=== PATIENT | male | born 1960 | race Two or more races ===

== ENCOUNTER 2020-03-22 15:00 | Outpatient (AMBR) | payer MEDICARE, MEDICAID, SELFPAY ==
--- NOTE | 2020-03-15 14:40 | PT.ODAYNRPT ---
PT Outpatient Daily Note Date of Service: 03/15/20 OP Daily Note Visit Reasons: bilat leg weakness Outpatient Physical Therapy Treatment Date: 03/15/20 Subjective: Pt mention that his legs are the same. Pt ran out of norco for 3 days and he's been having bad thoughts. Pt took a ibuprofen 2 days ago which seems to help his pain and ease his thoughts. Today Pt's been waiting for over 3 hrs for his pain meds and still hasn't received it yet. Pt stated that he's depressed due to not being able to work over 1 year Objective: Please see flow chart for list of ther ex performed Assessment: tolerate exercises with minimal pain Plan: Continue with PT Length of Time (minutes) of Treatment: 30 Minutes Office Procedures PT Procedures PT Date of Service: 03/15/20 Therapeutic Exercise 30 minutes: Yes
--- NOTE | 2020-03-22 16:12 | PTNOTE_ITS ---
PT OP Progress/Discharge Note Date of Service: 03/22/20 Progress Note/DC Note Progress Note/Discharge Note: DC Note Patient Information Visit Reasons: bilat leg weakness Medical Diagnosis: BLE Weakness; Right Medial Meniscus Tear Treatment Dx #1: BLE Weakness Service Continue Service or Discharge: Discharge Discharge Date: 03/22/20 Status Subjective: Pt mention that his legs feels the same and seems to worsen after t herapy. Pt continues to have medial right knee pain (6/10) with activities. Due to Pt's symptoms Pt has limitation with prolonged walking, standing, chores, self care, and uneven surfaces. Pt is suppose to get an opinion from a orthopedic surgeon after therapy. Pt feels comfortable being release from care at the moment with exercises to continue at home. Objective: BLE PROM: all motions are WNL Bilateral Knee AROM: all motions are WNL Bilateral Knee MMTs Quads: 4/5 Hs: 3+/5 Bilateral Hip MMTs Glute Med: 3+/5 Glute Max: 3+/5 Assessment: Pt demonstrate minimal improvement with physical therapy leading to continue difficulty with ADLs. Pt will no longer benefit from physical therapy due to plateau towards goals. Pt was instructed on HEP last session and educated to continue exercises to maintain overall mobility. Pt performed all exercises safely, thank you for your referrals. Plan: D/C home with HEP and follow up with provider Office Procedures PT Procedures PT Date of Service: 03/15/20 Therapeutic Exercise 30 minutes: Yes PT Procedures PT Date of Service: 03/22/20 Therapeutic Exercise 30 minutes: Yes
== END 2020-04-11 23:59 | disposition home or self-care (01) ==
PROVIDERS: PCP Registered Nurse Community Health; Referring Provider Registered Nurse Community Health; Visit Provider Registered Nurse Community Health
DX: M62.81 Muscle weakness (generalized) (principal); M51.26 Other intervertebral disc displacement, lumbar region; M25.551 Pain in right hip; M25.561 Pain in right knee; M54.31 Sciatica, right side; R26.2 Difficulty in walking, not elsewhere classified; G89.29 Other chronic pain; S83.241D Other tear of medial meniscus, current injury, right knee, subsequent encounter; W19.XXXD Unspecified fall, subsequent encounter
CPT/HCPCS: 97110

== ENCOUNTER 2024-01-11 08:42 | Outpatient (AMB) | payer MEDICARE, MEDICAID, SELFPAY ==
[2024-01-11 09:20] VITALS: BP 165/91; PULSE 74; RESP 18; TEMP 36; O2SAT 96; BMI 30.7
--- NOTE | 2024-01-11 09:20 | PD.ORTHCLVIS ---
Vital signs 01/11/24 09:20 Height 1.7 m Height Method Stated Weight 88.989 kg Weight Measurement Method Standing Scale BMI 30.7 BP 165/91 H Blood Pressure Source Automatic Cuff Blood Pressure Location Right Upper Arm Position Sitting Respiration 18 Pulse 74 Pulse Source Monitor Temp 96.8 F Temp Source Temporal Artery Scan Pulse Oximetry (%) 96 Oxygen Delivery Method Room Air Med/Allergies Allergies & Medications Allergies No Known Allergies Allergy (Verified 01/11/24 09:22) Medication Reconciliation escitalopram oxalate 5 mg tablet 5 mg PO QDAY 04/24/22 [History Confirmed 01/11/24] ferrous sulfate 325 mg (65 mg iron) tablet 325 mg PO BID 04/24/22 [History Confirmed 01/11/24] gemfibrozil 600 mg tablet 600 mg PO BID 04/24/22 [History Confirmed 01/11/24] hydrochlorothiazide 12.5 mg tablet 12.5 mg PO QAM 04/24/22 [History Confirmed 01/11/24] [id number]-[id number] 36,000-114,000-180,000 unit capsule,delay rel (Creon) 1 cap PO TIDWM 04/24/22 [History Confirmed 01/11/24] mesalamine 1,000 mg rectal suppository 1,000 mg IA HS 04/24/22 [History Confirmed 01/11/24] omeprazole 40 mg capsule,delayed release 40 mg PO BID 04/24/22 [History Confirmed 01/11/24] baclofen 10 mg tablet 10 mg PO QDAY #20 tabs 02/04/23 [Rx Confirmed 01/11/24] ibuprofen 600 mg tablet (IBU) 600 mg PO Q6H #20 tabs 02/04/23 [Rx Confirmed 01/11/24] duloxetine 30 mg capsule,delayed release (Cymbalta) 30 mg PO BID #60 caps 11/17/23 [Rx Confirmed 01/11/24] Subjective Visit Visit for: new patient and knee Immunization / Flu Flu Vaccine in the Last 12 Months: No Flu Vaccine Exclusion Criteria: Refused by Patient History of Present Illness Chief complaint: LEFT KNEE PAIN Patient is a 63-year-old male with a left knee pain and left knee arthritis. He has a history of a cervical fracture in the past. He reports that his left side is extremely weak both in the upper extremity and lower extremity. He walks contracted. He has an extremely severe limp Pain Pain level (0-10): 0 Pain duration: WHEN WALKING Pain location: inside (medial) Pain quality: other (specify) Pain timing: night, increases with activity and stairs Associated signs & symptoms: stiffness and other (specify) (UNSTABLE) Ambulatory data Ambulatory device: none Treatments Number of previous injections: 1 Improvement with previous injections: No Improvement with PT: No Improvement with NSAIDS: no Review of Systems Review of Systems: All systems negative unless otherwise noted in HPI. Exam Exam Patient is in no acute distress and is cooperative with the examination today. Breathing is nonlabored. Patient has a normal mood and affect. The patient has a gait that is Very contracted on the left Bilateral extremities were evaluated and demonstrates sensation intact to light touch. Palpable pedal pulses are present. No significant edema is present. Bilateral hips were examined. The patient has no pain with log roll of the hips. Internal rotation to 30 degrees and external rotation to 30 degrees is painless. Negative FADIR. Right knee was examined today. The right knee is in reasonable alignment. Range of motion from 0-120 degrees. Knee is stable to varus and valgus as well as AP translation with <5mm. Patient has a negative McMurrays. There is no pain with patellofemoral compression and no crepitus noted. The knee is nontender to palpation. Left knee was examined today. THe is extreme weakness on the left side. He has 3-4 out of 5 flexion and extension. He has significant contracture and clonus. Assessment and Plan Problem List (1) Arthritis of left knee: Status: Acute Plan: 63-year-old male with left knee pain and left knee arthritis. His x-rays doctor demonstrate mild arthritis. He has a severe contracture of his left knee as well as his left hand. We discussed that he may benefit from a neurologist to get Botox injections. This is for sure a neurological issue history of significant contractures. I do not think knee surgery would benefit him as he has contractures as his main issue Office Procedures GNS Level of Care Nursing/Assessment Patient Status: Established Patient Nursing Assessment/Reassesment: Medication Reconciliation, Update PMH in EMR and Vital Signs Coordination of Care: Complex Care and Chronic Disease 1-5, Education Complex Pt/Fam, Consent,records obtained, informed consent, 1 Ins Authorization, Lab and Imaging orders, Results/Orders obtained and Staff clarify orders Special Needs: Language special needs Established Patient Charge Established Patient Point Assignment: 125 Established Patient Point Charge: Level 4 (120-155) Past Medical History Past Medical History Have you ever been diagnosed with any of the following: Neurological Problems Seizures: No Cardiology Problems Hypercholesterolemia: Yes Congestive Heart Failure: No Hypertension: Yes Respiratory Problems Chronic Obstructive Pulmonary Disease (COPD): No Asthma: No Pneumonia: Yes Smoking: No Smoking Exposure: No Stomache/Intestinal Problems Pancreatitis: Yes Gastroesophageal Reflux Disease: Yes Genital/Urinary Problems Renal Disease: No Musculoskeletal Problems Arthritis: Yes Endocrine Problems Diabetes Mellitus Type 1: No Diabetes Mellitus Type 2: No Blood Problems Sickle Cell Disease: No Psychologic Problems Depression: Yes Anxiety: Yes Other Problems Hospitalization: Yes Blood Transfusions: Yes Blood Transfusion Reaction: No Anesthesia Reactions: No Chicken Pox: No Measles: No Mumps: No Cancer: No
== END 2024-01-11 09:51 | disposition home or self-care (01) ==
PROVIDERS: PCP Registered Nurse Community Health; Referring Provider Registered Nurse Community Health; Supervising Provider Orthopaedic Surgery Adult Reconstructive Orthopaedic Surgery; Visit Provider Orthopaedic Surgery Adult Reconstructive Orthopaedic Surgery
DX: M17.12 Unilateral primary osteoarthritis, left knee (principal); M25.562 Pain in left knee; M24.562 Contracture, left knee; M24.549 Contracture, unspecified hand; I10 Essential (primary) hypertension; E78.00 Pure hypercholesterolemia, unspecified
CPT/HCPCS: 99214; G0463

== ENCOUNTER 2024-01-31 07:13 | Emergency (ER) | payer MEDICARE, MEDICAID, SELFPAY ==
--- NOTE | 2024-01-31 07:19 | EKG_ITS ---
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
[2024-01-31 07:23] VITALS: BP 153/87; PULSE 85; RESP 19; TEMP 36.5; O2SAT 98; BMI 32.1
--- NOTE | 2024-01-31 07:33 | XR_ITS ---
Examination: CT brain head without contrast. 2-D sagittal coronal reconstructions Date and time of exam:January 31, 2024 0809 hours Comparison 11/16/2023 INDICATIONS: Generalized dizziness weakness beginning one week ago CTDI: vol (mGy):51.4 DLP: (mGycm):1023 Technique: Multiple CT axial sections of the brain have been obtained, 5 mm slice thickness. Contrast has not been administered. 2-D sagittal, coronal reconstructions have been obtained Low dose protocols were performed. One or more of the following dose reduction techniques were used; automated exposure control, adjustment of the mA and/or KV according to patient size, use of iterative reconstruction technique. Findings: No significant ventricular enlargement. 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 No mass effect or midline shift Basal cisterns are not remarkable. Fourth ventricle is midline. Cranial vault intact. Impression: Negative for acute hemorrhage, mass effect or midline shift If dizziness persists, suggest brain MRI follow-up
[2024-01-31 08:55] LABS: Basophils % (Auto) 1 % (0-2.5); Eosinophils # (Auto) 0.2 Thou/mm3 (0.0-0.5); Eosinophils % (Auto) 3 % (0-10); Hematocrit 38.3 % (41.0-53.0); Hemoglobin 13.1 g/dL (13.5-16.0); Immature Granulocytes % (Auto) 0 % (0-0); Immature Granulocytes Auto 0.02 Thou/mm3 (0.00-0.00); Lymphocytes # (Auto) 1.7 Thou/mm3 (1.0-4.8); Lymphocytes % (Auto) 30 % (10-50); Mean Corpuscular HGB Conc 34.2 g/dl (31.0-37.0); Mean Corpuscular Volume 85 fL (80-100); Monocytes # (Auto) 0.5 Thou/mm3 (0.0-0.8); Monocytes % (Auto) 8 % (0-12); Neutrophils # (Auto) 3.3 Thou/mm3 (1.8-7.7); Neutrophils % (Auto) 57 % (37-80); Nucleated Red Blood Cell % 0 /100 WBC (0); Platelet Count 339 Thou/mm3 (140-440); RDW Standard Deviation 42.8 fL (35.1-43.9); Red Blood Count 4.51 Miln/mm3 (4.50-5.90); White Blood Count 5.7 Thou/mm3 (3.8-10.6)
[2024-01-31 09:25] LABS: Alanine Aminotransferase 34 U/L (10-49); Albumin, Serum 4.5 gm/dL (3.4-4.8); Alkaline Phosphatase 100 U/L (46-116); Anion Gap 5 (7-16); Aspartate Amino Transferase 31 U/L (0-34); BUN/Creatinine Ratio 18 Ratio (12-20); Bilirubin,Total 0.3 mg/dL (0.3-1.2); Blood Urea Nitrogen 14 mg/dL (9-23); Calcium 9.2 mg/dL (8.3-10.6); Calcium (Corrected) 9.2 mg/dL (8.5-10.1); Carbon Dioxide 30.9 mMol/L (20.0-31.0); Chloride 101 mMol/L (98-107); Creatinine (Component) 0.8 mg/dL (0.6-1.3); Estimated Creatinine Clearance 96.9 mL/min (>60); Globulin 2.2 gm/dL (2.3-3.5); Glucose 117 mg/dL (74-106); Osmolality,Calculated 275 (275-295); Potassium 3.4 mMol/L (3.4-5.1); Sodium 137 mMol/L (136-145); Total Protein 6.7 gm/dL (5.7-8.2); Troponin I < 0.020 ng/mL (0.0-0.045); eGFR > 60 See Note
--- NOTE | 2024-01-31 10:18 | EDNOTE_ITS ---
ED Dizzyness RME/HPI General Chief Complaint: Dizziness Stated Complaint: Dizzy X 1 week, weakness Time Seen by Provider: 01/31/24 07:17 Arrival date/time: 01/31/24 07:13 64-year-old male presents emergency department today complaints of dizziness intermittently for the last couple of months patient was evaluated previously had MRI as well as CTs completed patient was told a couple months ago that he had a cyst and he is worried about the cyst in his brain Limitations: no limitations Related Data Home Medications ?Medication ?Instructions ?Recorded ?Confirmed escitalopram oxalate 5 mg tablet 5 mg PO QDAY 04/24/22 01/11/24 ferrous sulfate 325 mg (65 mg 325 mg PO BID 04/24/22 01/11/24 iron) tablet gemfibrozil 600 mg tablet 600 mg PO BID 04/24/22 01/11/24 hydrochlorothiazide 12.5 mg tablet 12.5 mg PO QAM 04/24/22 01/11/24 djmcuh-[id number]-alrlqyp 1 cap PO TIDWM 04/24/22 01/11/24 36,000-114,000-180,000 unit capsule,delay rel (Creon) mesalamine 1,000 mg rectal 1,000 mg TX HS 04/24/22 01/11/24 suppository omeprazole 40 mg capsule,delayed 40 mg PO BID 04/24/22 01/11/24 release Previous Rx's ?Medication ?Instructions ?Recorded baclofen 10 mg tablet 10 mg PO QDAY #20 tabs 02/04/23 ibuprofen 600 mg tablet (IBU) 600 mg PO Q6H #20 tabs 02/04/23 duloxetine 30 mg capsule,delayed 30 mg PO BID #60 caps 11/17/23 release (Cymbalta) meclizine 25 mg tablet 25 mg PO QDAY PRN dizziness #10 01/14/24 tabs Allergies Allergy/AdvReac Type Severity Reaction Status Date / Time No Known Allergies Allergy Verified 01/14/24 13:11 Review of Systems Review of Systems Systems Reviewed: All systems reviewed, normal except as documented Constitutional Constitutional: Reports system reviewed and no additional complaints, except as documented, Denies fever(s) and Denies headache(s) Eyes Eyes: Reports system reviewed and no additional complaints, except as documented and Denies blurry vision ENT Ears, Nose, Mouth, and Throat: Reports system reviewed and no additional complaints, except as documented, Denies headache(s), Denies nasal congestion, Denies nasal discharge and Reports vertigo Cardiovascular Cardiovascular: Reports system reviewed and no additional complaints, except as documented, Denies chest pain and Denies dyspnea Respiratory Respiratory: Reports system reviewed and no additional complaints, except as documented, Denies chest congestion, Denies cough and Denies dyspnea Gastrointestinal Gastrointestinal: Reports system reviewed and no additional complaints, except as documented and Denies abdominal pain Integumentary/Breasts Skin/Breast: Reports system reviewed and no additional complaints, except as documented and Denies rash Neurologic Neurologic: Reports system reviewed and no additional complaints, except as documented, Reports as per HPI, Denies headache(s) and Reports vertigo Psychiatric Psychiatric: Reports system reviewed and no additional complaints, except as documented and Reports anxiety Past Medical History Past Medical History NEUROLOGIC: Negative Neurological Disorders or Seizures CARDIAC: Positive Cardiac Disorders, Hypercholesterolemia and Hypertension; Negative Congestive Heart Failure RESPIRATORY: Positive Pneumonia; Negative Chronic Obstructive Pulmonary Disease (COPD), Asthma, Smoking or Smoking Exposure GASTROINTESTINAL: Positive Gastrointestinal Disorders, Pancreatitis and Gastroe sophageal Reflux Disease GENITOURINARY: Negative Genitourinary Disorders or Renal Disease MUSCULOSKELETAL: Positive Musculoskeletal Disorders and Arthritis ENDOCRINE: Positive Endocrine Disorders; Negative Diabetes Mellitus Type 1 or Diabetes Mellitus Type 2 HEMATOLOGIC: Negative Blood Disorders or Sickle Cell Disease PSYCHO/SOCIAL: Positive Depression and Anxiety OTHER HISTORY: Positive Hospitalization and Blood Transfusions; Negative Autoimmune Disease, Blood Transfusion Reaction, Anesthesia Reactions, Chicken Pox, Measles, Mumps or Cancer Social History SMOKING STATUS: Former smoker SUBSTANCE USE: does not use ED Exam General Limitations: Present no limitations General appearance: Present alert, in no apparent distress and anxious Head Head exam: Present atraumatic Eye Eye exam: Present normal appearance, PERRL and EOMI ENT ENT exam: Present normal exam, normal oropharynx and mucous membranes moist Neck Neck exam: Present normal inspection, full ROM and trachea midline Chest Chest inspection: Present normal inspection and symmetric chest wall rise Respiratory Respiratory exam: Present normal lung sounds bilaterally; Absent respiratory distress, wheezes, stridor, accessory muscle use or prolonged expiratory phase Cardiovascular Cardiovascular exam: Present regular rate, normal rhythm and normal heart sounds; Absent bradycardia, tachycardia, irregular rhythm, systolic murmur, diastolic murmur or JVD Abdominal Exam Abdominal exam: Present soft and normal bowel sounds; Absent distention, tenderness, guarding, rebound or rigidity Extremities Exam Extremities exam: Present normal inspection and full ROM Back Exam Back exam: Present normal inspection and full ROM Neurological Exam Neurological exam: Present alert, oriented X3 and CN II-XII intact Psychiatric Psychiatric exam: Present normal affect and normal mood Skin Skin exam: Present warm, dry, intact and normal color Course Quality Measures none Orders Category Date Time Status EKG (ED ONLY) *Do not use* NOW Care 01/31/24 07:[address] head/brain wo con Stat Exams 01/31/24 07:33 Completed EKG (ED Only) Stat Exams 01/31/24 07:19 Draft CBC Stat Lab 01/31/24 08:20 Completed Comprehensive Metabolic Panel Stat Lab 01/31/24 08:20 Completed Troponin I Stat Lab 01/31/24 08:20 Completed Vital Signs Vital signs: Vital Signs Temperature 97.7 F 01/31/24 07:23 Pulse Rate 85 01/31/24 07:23 Respiratory Rate 19 01/31/24 07:23 Blood Pressure 153/87 H 01/31/24 07:23 Pulse Oximetry (%) 98 01/31/24 07:23 Oxygen Delivery Method Room Air 01/31/24 07:23 O2 saturation 98% room air within normal limits Dizziness MDM Narrative MDM Narrative:: 64-year-old male presents emergency department today complaints of dizziness intermittently for the last couple of months patient was evaluated previously had MRI as well as CTs completed patient was told a couple months ago that he had a cyst and he is worried about the cyst in his brain On exam patient well-appearing patient does not appear ill or toxic in no acute distress Lab work, EKG, CT scan obtained Patient is brain cyst is stable EKG no acute emergent findings noted Lab work no acute emergent findings noted Patient discharged in no distress without difficulty ambulates without difficulty Patient discharged home in no distress to follow-up with primary care doctor in the next 24 to 48 hours and for any worsening symptoms to return to the ER immediately Patient data External records reviewed:: [facility] previous records Clinical information provided by:: patient Social determinants that could affect healthcare access:: mental health Patient has the following chronic illnesses:: Anxiety How is presenting disease/condition affected by chronic disease/condition?: caused by Evaluation data The following diagnostics were reviewed and interpreted by me:: lab results, radiology exam(s) and EKG tracing(s) Lab and/or radiology exams considered but not ordered:: Labs, radiology, EKG obtained Interpretation Summary: Reviewed by me Medications / Prescriptions Medications or Prescriptions considered but not ordered:: Given no meds Medication administrations:: No meds given Consultations Consultation(s) initiated? (list below): No Diagnosis Dizziness Differential Diagnosis: other (Anxiety, stress reaction, headache, cerebral cyst) Most likely diagnosis given after review of the tests above:: Cyst, anxiety Admission Indicated Admission indicated?: not indicated Admission Request Was there a request for admission?: No Disposition Plan Disposition Plan: Discharge Discharge Attestation Discharge Attestation: The patient and all family members were given an opportunity to ask questions and understood the discharge instructions. Discharge instructions specifically effects, indications for sooner follow up or return to the emergency department, and the expected course of current diagnosis. Patient condition: Stable Discharge Plan Plan Patient Disposition: HOME (Self Care) Disposition Comment: Stable Prescriptions/Referrals Prescriptions/Med Rec: No Action omeprazole 40 mg capsule,delayed release(DR/EC) 40 mg PO BID Patient Comments: TOME 1 CAPSULA POR LA BOCA DOS VECES AL EMI PARA EL ESTOMAGO gemfibrozil 600 mg tablet 600 mg PO BID Patient Comments: TOME SHY TABLETA DOS VECES AL D A ferrous sulfate 325 mg (65 mg iron) tablet 325 mg PO BID Patient Comments: TOME SHY TABLETA DOS VECES AL D A CON JUGO DE NARANJA escitalopram oxalate 5 mg tablet 5 mg PO QDAY Hold Instructions: Resume on 01/02/23. Patient Comments: TOME 1 TABLET POR LA BOCA SHY VES AL EMI mesalamine 1,000 mg suppository 1,000 mg TX HS Patient Comments: INSERT 1 SUPPOSITORY RECTALLY ONCE A DAY AT BEDTIME hydrochlorothiazide 12.5 mg tablet 12.5 mg PO QAM Patient Comments: TOME SHY TABLETA POR V A ORAL TODOS LOS D EN LA MA GIOVANNI Creon 36,000-114,000- 180,000 unit capsule,delayed release(DR/EC) 1 cap PO TIDWM Patient Comments: TOME SHY C PSULA JOSE L VECES AL D A CON ALIMENTO ibuprofen [IBU] 600 mg tablet 600 mg PO Q6H Qty: 20 0RF baclofen 10 mg tablet 10 mg PO QDAY Qty: 20 0RF meclizine 25 mg tablet 25 mg PO QDAY PRN (Reason: dizziness) Qty: 10 0RF duloxetine [Cymbalta] 30 mg capsule,delayed release(DR/EC) 30 mg PO BID Qty: 60 0RF Referrals: Sandy Woods FNP [Primary Care Provider] - In 1 week Problem List Clinical Impression: Anxiety about health, Dizziness Patient/Caregiver Discharge Instructions Education Materials: ED Symptoms With Uncertain Cause Additional Instructions: Please follow up with your primary care doctor in the next 24-48hrs for any worsening symptoms return here immediately Print Language: [place] Citizen Stand Alone Forms: Amalia Award Info., Patient Portal Info Letter PA/ANTENNA MACHINE OPERATOR Supervising Physician RON/ALLISON Supervising Physician: Dr. farr
[2024-01-31 10:22] VITALS: BP 147/85; PULSE 64; RESP 16; TEMP 36.6; O2SAT 99
== END 2024-01-31 11:21 | disposition home or self-care (01) ==
PROVIDERS: Nurse Practitioner Primary Care; Emergency Provider Emergency Medicine; PCP Registered Nurse Community Health
DX: F41.9 Anxiety disorder, unspecified (principal); R42 Dizziness and giddiness; R53.1 Weakness; R94.31 Abnormal electrocardiogram [ECG] [EKG]
CPT/HCPCS: 36415; 70450; 80053; 84484; 85025; 93005; 99284

== ENCOUNTER 2024-05-08 14:31 | Outpatient (AMB) | payer MEDICARE, MEDICAID, SELFPAY ==
[2024-05-08 14:39] VITALS: BP 172/87; PULSE 78; RESP 19; TEMP 36.4; O2SAT 96; BMI 32.1
--- NOTE | 2024-05-08 14:39 | PD.GSCLVISIT ---
Vital Signs - [facility] 05/08/24 14:39 Height 1.68 m Height Method Stated Weight 90.718 kg Weight Measurement Method Standing Scale BMI 32.1 BP 172/87 H Blood Pressure Source Automatic Cuff Blood Pressure Location Right Lower Arm Position Sitting Respiration 19 Pulse 78 Pulse Source Monitor Temp 97.6 F Temp Source Temporal Artery Scan Pulse Oximetry (%) 96 Oxygen Delivery Method Room Air Med/Allergies Allergies & Medications Allergies No Known Allergies Allergy (Verified 05/08/24 14:40) Medication Reconciliation escitalopram oxalate 5 mg tablet 5 mg PO QDAY 04/24/22 [History Confirmed 05/08/24] Held on 01/01/23. Instructions: Resume on 01/02/23. ferrous sulfate 325 mg (65 mg iron) tablet 325 mg PO BID 04/24/22 [History Confirmed 05/08/24] gemfibrozil 600 mg tablet 600 mg PO BID 04/24/22 [History Confirmed 05/08/24] hydrochlorothiazide 12.5 mg tablet 12.5 mg PO QAM 04/24/22 [History Confirmed 05/08/24] [id number]-[id number] 36,000-114,000-180,000 unit capsule,delay rel (Creon) 1 cap PO TIDWM 04/24/22 [History Confirmed 05/08/24] mesalamine 1,000 mg rectal suppository 1,000 mg OK HS 04/24/22 [History Confirmed 05/08/24] omeprazole 40 mg capsule,delayed release 40 mg PO BID 04/24/22 [History Confirmed 05/08/24] baclofen 10 mg tablet 10 mg PO QDAY #20 tabs 02/04/23 [Rx Confirmed 05/08/24] ibuprofen 600 mg tablet (IBU) 600 mg PO Q6H #20 tabs 02/04/23 [Rx Confirmed 05/08/24] duloxetine 30 mg capsule,delayed release (Cymbalta) 30 mg PO BID #60 caps 11/17/23 [Rx Confirmed 05/08/24] meclizine 25 mg tablet 25 mg PO QDAY PRN dizziness #10 tabs 01/14/24 [Rx Confirmed 05/08/24] MA Intake Visit Data Collection New Patient or Established: Established Patient (seen at [facility] within 3 years) Seen by Clinical Staff ONLY (RN/TYLER): No Reason for Visit:: referral f/u Pain Present Currently: No Pain scale:: 0 Platform Architect Required: Yes PCP or OBGYN visit in last 3 months: No Do You Feel Safe at Home: Yes Authorities Contacted: N/A Smoking Status Smoking Status: Never smoker Immunization / Flu Flu Vaccine in the Last 12 Months: Yes Flu Vaccine Exclusion Criteria: Already Received Past Medical History Past Medical History NEUROLOGIC: Negative Neurological Disorders or Seizures CARDIAC: Positive Cardiac Disorders, Hypercholesterolemia and Hypertension; Negative Congestive Heart Failure RESPIRATORY: Positive Pneumonia; Negative Chronic Obstructive Pulmonary Disease (COPD), Asthma, Smoking or Smoking Exposure GASTROINTESTINAL: Positive Gastrointestinal Disorders, Pancreatitis and Gastroesophageal Reflux Disease GENITOURINARY: Negative Genitourinary Disorders or Renal Disease MUSCULOSKELETAL: Positive Arthritis ENDOCRINE: Positive Endocrine Disorders; Negative Diabetes Mellitus Type 1 or Diabetes Mellitus Type 2 HEMATOLOGIC: Negative Blood Disorders or Sickle Cell Disease PSYCHO/SOCIAL: Positive Depression and Anxiety OTHER HISTORY: Positive Hospitalization and Blood Transfusions; Negative Autoimmune Disease, Blood Transfusion Reaction, Anesthesia Reactions, Chicken Pox, Measles, Mumps or Cancer Social History SMOKING STATUS: Smoking status: Never smoker ALCOHOL: Alcohol Intake: Former HOUSING: Housing: House HPI HPI Narrative Spoke to pt with in-person lang interpreter 64M with HTN, HLD referred for lipoma of his right lower back. Pt reports he first noticed the lesion a year ago and it is painful, especially with movement. He denies any change in size, has not had any redness or drainage and has no history of the same PMH: HTN, HLD, anxiety PSHx: Neck surgery after trauma, knee surgery Meds: No antiplt or anticoagulation Allergies:NKDA Social hx: Nonsmoker ROS Review of Systems Systems Reviewed: All systems reviewed, normal except as documented Objective/Exam General General Appearance: alert, cooperative and well groomed Resp Respiratory exam: Absent respiratory distress Back Back exam: Present other (small mobile, nontender lipoma palpable at right lower back, no overlying skin changes) Assessment & Plan Diagnosis / Problem List (1) Lipoma of back: Status: Acute Assessment & Plan: 64M with HTN, HLD presenting with symptomatic lipoma of back. I explained benefits/risks of surgery including bleeding, infection and recurrence. Pt expressed understanding and would like to proceed Advanced Care Planning Advance care planning discussed with:: other Office Procedures GNS Level of Care Nursing/Assessment Patient Status: Established Patient Nursing Assessment/Reassesment: Medication Reconciliation, Update PMH in EMR and Vital Signs Coordination of Care: Complex Care and Chronic Disease 1-5, Consent,records obtained, informed consent, Lab and Imaging orders, Results/Orders obtained and Staff clarify orders Special Needs: Language special needs Established Patient Charge Established Patient Point Assignment: 90 Established Patient Point Charge: Level 3 (80-115) Patient Portal Questionaires Social History Living Situation History Housing: House Tobacco History Smoking Status: Never smoker Alcohol History Alcohol Intake: Former Domestic Abuse History Do You Feel Safe at Home: Yes Review of Systems Report any current symptoms Only answer those that you have currently: Past Medical History Past Medical History Have you ever been diagnosed with any of the following: Neurological Problems Seizures: No Cardiology Problems Hypercholesterolemia: Yes Congestive Heart Failure: No Hypertension: Yes Respiratory Problems Chronic Obstructive Pulmonary Disease (COPD): No Asthma: No Pneumonia: Yes Smoking: No Smoking Exposure: No Stomache/Intestinal Problems Pancreatitis: Yes Gastroesophageal Reflux Disease: Yes Genital/Urinary Problems Renal Disease: No Musculoskeletal Problems Arthritis: Yes Endocrine Problems Diabetes Mellitus Type 1: No Diabetes Mellitus Type 2: No Blood Problems Sickle Cell Disease: No Psychologic Problems Depression: Yes Anxiety: Yes Other Problems Hospitalization: Yes Autoimmune Disease: No Blood Transfusions: Yes Blood Transfusion Reaction: No Anesthesia Reactions: No Chicken Pox: No Measles: No Mumps: No Cancer: No
== END 2024-05-08 14:54 | disposition home or self-care (01) ==
PROVIDERS: PCP Registered Nurse Community Health; Referring Provider Registered Nurse Community Health; Supervising Provider Surgery; Visit Provider Surgery
DX: D17.1 Benign lipomatous neoplasm of skin and subcutaneous tissue of trunk (principal)
CPT/HCPCS: 99213; G0463

== ENCOUNTER 2024-06-05 10:11 | Emergency (ER) | payer MEDICARE, MEDICAID, SELFPAY ==
--- NOTE | 2024-06-05 10:39 | XR_ITS ---
Examination: PA chest single view TECHNIQUE: Upright PA chest single view Exam date and time: June 05, 2024 1058 hours INDICATIONS: Weakness beginning 5 days ago. FINDINGS: Normal heart size. No pneumonia or pulmonary edema. Moderate osteopenia IMPRESSION: No pneumonia or pulmonary edema
--- NOTE | 2024-06-05 10:39 | EKG_ITS ---
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
[2024-06-05 10:41] VITALS: BP 107/71; PULSE 100; RESP 18; TEMP 36.8; O2SAT 99; BMI 35.4
[2024-06-05 11:19] LABS: Basophils # (Auto) 0.1 Thou/mm3 (0.0-0.2); Basophils % (Auto) 1 % (0-2.5); Eosinophils # (Auto) 0.2 Thou/mm3 (0.0-0.5); Eosinophils % (Auto) 2 % (0-10); Hematocrit 43.2 % (41.0-53.0); Immature Granulocytes % (Auto) 1 % (0-0); Immature Granulocytes Auto 0.05 Thou/mm3 (0.00-0.00); Lymphocytes # (Auto) 2.1 Thou/mm3 (1.0-4.8); Lymphocytes % (Auto) 22 % (10-50); Mean Corpuscular HGB Conc 34.7 g/dl (31.0-37.0); Mean Corpuscular Hemoglobin 28.5 pg (25.0-35.0); Mean Corpuscular Volume 82 fL (80-100); Monocytes # (Auto) 0.6 Thou/mm3 (0.0-0.8); Monocytes % (Auto) 6 % (0-12); Neutrophils # (Auto) 6.6 Thou/mm3 (1.8-7.7); Neutrophils % (Auto) 69 % (37-80); Nucleated Red Blood Cell % 0 /100 WBC (0); Platelet Count 401 Thou/mm3 (140-440); RDW Standard Deviation 39.6 fL (35.1-43.9); Red Blood Count 5.27 Miln/mm3 (4.50-5.90); White Blood Count 9.7 Thou/mm3 (3.8-10.6)
[2024-06-05 11:43] LABS: B-Type Natriuretic Peptide < 20 pg/mL (0-100)
[2024-06-05 11:47] LABS: Collection Type, Urine Clean Catch
[2024-06-05 11:47] LABS: Alanine Aminotransferase 37 U/L (10-49); Albumin, Serum 4.6 gm/dL (3.4-4.8); Albumin/Globulin Ratio 1.8 (1.2-2.2); Alkaline Phosphatase 115 U/L (46-116); Anion Gap 12 (7-16); Aspartate Amino Transferase 21 U/L (0-34); BUN/Creatinine Ratio 15 Ratio (12-20); Bilirubin,Total 0.4 mg/dL (0.3-1.2); Blood Urea Nitrogen 12 mg/dL (9-23); Calcium 9.7 mg/dL (8.3-10.6); Calcium (Corrected) 9.7 mg/dL (8.5-10.1); Chloride 98 mMol/L (98-107); Creatinine (Component) 0.8 mg/dL (0.6-1.3); Estimated Creatinine Clearance 91.7 mL/min (>60); Globulin 2.6 gm/dL (2.3-3.5); Glucose 137 mg/dL (74-106); Osmolality,Calculated 271 (275-295); Potassium 4.1 mMol/L (3.4-5.1); Sodium 135 mMol/L (136-145); Total Protein 7.2 gm/dL (5.7-8.2); Troponin I < 0.020 ng/mL (0.0-0.045); eGFR > 60 See Note
[2024-06-05 12:07] LABS: Amphetamine/Methamp Scrn,U Negative (Negative); Barbiturate Screen,Urine Negative (Negative); Benzodiazepines Screen,Urine Positive (Negative); Benzoylecgonine Screen, Ur Negative (Negative); Fentanyl Screen,Urine Negative (Negative); Opiate Screen,Urine Negative (Negative); THC Screen,Urine Negative (Negative)
[2024-06-05 12:17] LABS: Bilirubin,Urine Negative (Negative); Blood,Urine Negative (Negative); Clarity,Urine Clear (Clear/Hazy); Color,Urine Lt-Yellow (Lt Yel-Yel); Glucose, Urine Negative (Negative); Ketones,Urine Negative (Negative); Leukocyte Esterase,Urine Negative (Negative); Nitrite,Urine Negative (Negative); Protein,Urine Negative (Neg - Trace); RBC,Urine 1 /hpf (0-3); Squamous Epithelial Cell,Urine < 1 /hpf (0-5); Urobilinogen,Urine Negative mg/dL (0.0-1.0); WBC,Urine < 1 /hpf (0-5)
--- NOTE | 2024-06-05 12:27 | PD.EDRME ---
Rapid Medical Screening Exam RME Arrival date/time: 06/05/24 10:11 64-year-old male presents for concerns for generalized weakness Chief Complaint: General Adult/Misc Complain Vital signs: Vital Signs Temperature 98.3 F 06/05/24 10:41 Pulse Rate 100 06/05/24 10:41 Respiratory Rate 18 06/05/24 10:41 Blood Pressure 107/71 06/05/24 10:41 Pulse Oximetry (%) 99 06/05/24 10:41 Oxygen Delivery Method Room Air 06/05/24 10:41
[2024-06-05 12:45] LABS: INR 0.9 (0.9-1.3); Partial Thromboplastin Time 28.2 Seconds (22.0-36.0); Prothrombin Time 10.2 Seconds (9.0-12.2)
--- NOTE | 2024-06-05 14:50 | PD.EDADULT ---
ED General RME/HPI General Chief complaint: General Adult/Misc Complain Stated complaint: WEAKNESS Time Seen by Provider: 06/05/24 13:01 Arrival date/time: 06/05/24 10:11 RME / HPI RME / HPI narrative: 64-year-old male patient with significant history of anxiety, came in for evaluation regarding generalized body weakness. This been ongoing for several weeks, associated with anxiety-like symptoms. Patient told me that his been taking his anxiety medications with good compliance. Patient denies any fever denies any headache denies any vomiting chest pain or abdominal pain. Patient is ambulatory. Related Data Home Medications ?Medication ?Instructions ?Recorded ?Confirmed escitalopram oxalate 5 mg tablet 5 mg PO QDAY 04/24/22 05/08/24 Held on 01/01/23. Instructions: Resume on 01/02/23. ferrous sulfate 325 mg (65 mg 325 mg PO BID 04/24/22 05/08/24 iron) tablet gemfibrozil 600 mg tablet 600 mg PO BID 04/24/22 05/08/24 hydrochlorothiazide 12.5 mg tablet 12.5 mg PO QAM 04/24/22 05/08/24 [id number]-[id number]-[id number] 1 cap PO TIDWM 04/24/22 05/08/24 36,000-114,000-180,000 unit capsule,delay rel (Creon) mesalamine 1,000 mg rectal 1,000 mg ND HS 04/24/22 05/08/24 suppository omeprazole 40 mg capsule,delayed 40 mg PO BID 04/24/22 05/08/24 release Previous Rx's ?Medication ?Instructions ?Recorded baclofen 10 mg tablet 10 mg PO QDAY #20 tabs 02/04/23 ibuprofen 600 mg tablet (IBU) 600 mg PO Q6H #20 tabs 02/04/23 duloxetine 30 mg capsule,delayed 30 mg PO BID #60 caps 11/17/23 release (Cymbalta) meclizine 25 mg tablet 25 mg PO QDAY PRN dizziness #10 01/14/24 tabs Allergies Allergy/AdvReac Type Severity Reaction Status Date / Time No Known Allergies Allergy Verified 06/05/24 10:19 Review of Systems Review of Systems Narrative Review of Systems: Review of system reviewed and within normal limits except mentioned in HPI ED Exam Narrative Physical exam: VITAL SIGNS: Reviewed. GENERAL APPEARANCE: Alert and interactive, follows commands, no acute distress, HEAD AND FACE: Non-traumatic. ENT: PERRL, pink conjunctivitis, eyelid no trauma, Mucous membrane moist. NECK: Supple, nontender, no nuchal rigidity. CHEST: No tenderness, no crepitus, no paradoxical movement, no retractions. LUNGS: Clear, well ventilated, symmetric, no rales, no wheezing, no ronchi, no stridor, good breath sounds bilaterally. HEART: Regular rate, regular rhythm, no murmur, no gallops. ABDOMEN: Soft, positive bowel sounds, nondistended, no guarding, nontender, no rebound, no masses, RECTAL: Deferred. GENITAL: Deferred. NEUROLOGICAL: Gross motor function intact sensory function intact, Appropriate for age. MUSCULOSKELETAL: low back nontender, full range of motion. EXTREMITIES: Nontender, full range of motion. SKIN: Color pink, dry, no rash, no lacerations, no abrasions, no contusions. LYMPHATICS: Deferred. Course Quality Measures none Orders Category Date Time Status EKG (ED ONLY) *Do not use* NOW Care 06/05/24 10:39 Completed EKG (ED Only) Stat Exams 06/05/24 10:39 Draft XR chest 1V portable Stat Exams 06/05/24 10:39 Completed B-Type Natriuretic Peptide Stat Lab 06/05/24 11:04 Completed CBC Stat Lab 06/05/24 11:04 Completed Comprehensive Metabolic Panel Stat Lab 06/05/24 11:04 Completed Drug Screen,Urine Stat Lab 06/05/24 11:23 Completed Magnesium Stat Lab 06/05/24 11:04 Completed Partial Thromboplastin Time Stat Lab 06/05/24 11:04 Completed Prothrombin Time with INR Stat Lab 06/05/24 11:04 Completed Troponin I Stat Lab 06/05/24 11:04 Completed Urinalysis Stat Lab 06/05/24 11:23 Completed Vital Signs Vital signs: Vital Signs Temperature 98.3 F 06/05/24 10:41 Pulse Rate 100 06/05/24 10:41 Respiratory Rate 18 06/05/24 10:41 Blood Pressure 107/71 06/05/24 10:41 Pulse Oximetry (%) 99 06/05/24 10:41 Oxygen Delivery Method Room Air 06/05/24 10:41 [facility] Patient data External records reviewed:: None Clinical information provided by:: patient Social determinants that could affect healthcare access:: none Patient has the following chronic illnesses:: Although pt's initial presentation was concerning, Pt now reports feeling better after Ativan and has an unremarkable vital signs. Stable for D/C. Hydroxyzine given as needed How is presenting disease/condition affected by chronic disease/condition?: exacerbated by Evaluation data The following diagnostics were reviewed and interpreted by me:: lab results, radiology exam(s) and EKG tracing(s) Lab and/or radiology exams considered but not ordered:: None Interpretation Summary: See results in MDM Medications Medications considered but not ordered:: None Medication administrations:: None Consultations Consultation(s) initiated? (list below): No Diagnosis Differential Diagnosis ED Complaint MDM: Generalized weakness, anxiety-like symptoms, UTI Most likely diagnosis given after review of the tests above:: Generalized weakness, anxiety Admission Indicated Admission indicated?: not indicated Explain why admission is indicated or not indicated:: Stable Admission Request Was there a request for admission?: No Disposition Plan Disposition Plan: Discharge Discharge Attestation Discharge Attestation: The patient was given an opportunity to ask questions and understood the discharge instructions. Discharge instructions specifically effects, indications for sooner follow up or return to the emergency department, and the expected course of current diagnosis. Patient condition: Stable Medical Decision Making [facility] Narrative [facility] Narrative: 64-year-old male patient with significant history of anxiety, came in for evaluation regarding generalized body weakness. This been ongoing for several weeks, associated with anxiety-like symptoms. Patient told me that his been taking his anxiety medications with good compliance. Patient denies any fever denies any headache denies any vomiting chest pain or abdominal pain. Patient is ambulatory. Patient's laboratory workup today all came back unremarkable no leukocytosis, CMP normal urinalysis no UTI positive benzo chest x-ray no infiltrates no pneumothorax pneumothorax EKG showed sinus tachycardia, ventricular rate of 109 bpm, no ST segment elevation or depression noted. Results discussed with the patient Patient appears nontoxic and hemodynamically stable. Patient discharged home and instructed to follow-up with primary care provider in 24 to 48 hours. Instructed to return to the emergency department immediately if worsening of symptoms Differential Diagnosis Differential Diagnosis: Generalized weakness, anxiety-like symptoms, UTI Lab Data 06/05/24 11:04 06/05/24 11:04 Labs: Lab Results 06/05/24 06/05/24 Range/Units 11:04 11:23 WBC 9.7 (3.8-10.6) Thou/mm3 RBC 5.27 (4.50-5.90) Miln/mm3 Hgb 15.0 (13.5-16.0) g/dL Hct 43.2 (41.0-53.0) % MCV 82 (80-100) fL MCH 28.5 (25.0-35.0) pg MCHC 34.7 (31.0-37.0) g/dl RDW Std Deviation 39.6 (35.1-43.9) fL Plt Count 401 (140-440) Thou/mm3 Neut % (Auto) 69 (37-80) % Lymph % (Auto) 22 (10-50) % Snyder % (Auto) 6 (0-12) % Eos % (Auto) 2 (0-10) % Baso % (Auto) 1 (0-2.5) % Neut # (Auto) 6.6 (1.8-7.7) Thou/mm3 Lymph # (Auto) 2.1 (1.0-4.8) Thou/mm3 Snyder # (Auto) 0.6 (0.0-0.8) Thou/mm3 Eos # (Auto) 0.2 (0.0-0.5) Thou/mm3 Baso # (Auto) 0.1 (0.0-0.2) Thou/mm3 Immature Gran # (Auto) 0.05 H (0.00-0.00) Thou/mm3 Absolute Nucleated RBC 0.00 (0.00-0.00) Thou/mm3 Immature Gran % 1 H (0-0) % Nucleated RBC % 0 (0) /100 WBC PT 10.2 (9.0-12.2) Seconds INR 0.9 (0.9-1.3) APTT 28.2 (22.0-36.0) Seconds Sodium 135 L (136-145) mMol/L Potassium 4.1 (3.4-5.1) mMol/L Chloride 98 (98-107) mMol/L Carbon Dioxide 25.0 (20.0-31.0) mMol/L Anion Gap 12 (7-16) BUN 12 (9-23) mg/dL Creatinine 0.8 (0.6-1.3) mg/dL Estim Creat Clear Calc 91.7 (>60) mL/min eGFR > 60 (60 - ) See Note BUN/Creatinine Ratio 15 (12-20) Ratio Glucose 137 H (74-106) mg/dL Calculated Osmolality 271 L (275-295) Calcium 9.7 (8.3-10.6) mg/dL Corrected Calcium 9.7 (8.5-10.1) mg/dL Magnesium 2.0 (1.6-2.6) mg/dL Total Bilirubin 0.4 (0.3-1.2) mg/dL AST 21 (0-34) U/L ALT 37 (10-49) U/L Alkaline Phosphatase 115 (46-116) U/L Troponin I < 0.020 (0.0-0.045) ng/mL B-Natriuretic Peptide < 20 (0-100) pg/mL Total Protein 7.2 (5.7-8.2) gm/dL Albumin 4.6 (3.4-4.8) gm/dL Globulin 2.6 (2.3-3.5) gm/dL Albumin/Globulin Ratio 1.8 (1.2-2.2) Ur Collection Type Clean Catch Urine Color Lt-Yellow (Lt Yel-Yel) Urine Clarity Clear (Clear/Hazy) Urine pH 6.0 (5.0-7.0) Ur Specific [place] 1.020 (1.001-1.035) Urine Protein Negative (Neg - Trace) Urine Glucose (UA) Negative (Negative) Urine Ketones Negative (Negative) Urine Blood Negative (Negative) Urine Nitrite Negative (Negative) Urine Bilirubin Negative (Negative) Urine Urobilinogen (Auto) Negative (0.0-1.0) mg/dL Ur Leukocyte Esterase Negative (Negative) Urine RBC 1 (0-3) /hpf Urine WBC < 1 (0-5) /hpf Ur Squamous Epith Cells < 1 (0-5) /hpf Urine Bacteria None (None) Urine Opiates Screen Negative (Negative) Urine Fentanyl Screen Negative (Negative) Ur Barbiturates Screen Negative (Negative) U Amphetamin/Meth Scrn Negative (Negative) U Benzodiazepines Scrn Positive A (Negative) U Cocaine Metab Screen Negative (Negative) U Marijuana (THC) Screen Negative (Negative) Discharge Plan Plan Patient Disposition: HOME (Self Care) Disposition Comment: Stable Prescriptions/Referrals Prescriptions/Med Rec: No Action omeprazole 40 mg capsule,delayed release(DR/EC) 40 mg PO BID Patient Comments: TOME 1 CAPSULA POR LA BOCA DOS VECES AL EMI PARA EL [place]OM[place]O gemfibrozil 600 mg tablet 600 mg PO BID Patient Comments: TOME SHY TABLETA DOS VECES AL D A ferrous sulfate 325 mg (65 mg iron) tablet 325 mg PO BID Patient Comments: TOME SHY TABLETA DOS VECES AL D A CON JUGO DE NARANJA escitalopram oxalate 5 mg tablet 5 mg PO QDAY Patient Comments: TOME 1 TABLET POR LA BOCA SHY VES AL EMI mesalamine 1,000 mg suppository 1,000 mg ND HS Patient Comments: INSERT 1 SUPPOSITORY RECTALLY ONCE A DAY AT BEDTIME hydrochlorothiazide 12.5 mg tablet 12.5 mg PO QAM Patient Comments: TOME SHY TABLETA POR V A ORAL TODOS LOS D EN LA MA GIOVANNI Creon 36,000-114,000- 180,000 unit capsule,delayed release(DR/EC) 1 cap PO TIDWM Patient Comments: TOME SHY C PSULA JOSE L VECES AL D A CON ALIMENTO ibuprofen [IBU] 600 mg tablet 600 mg PO Q6H Qty: 20 0RF baclofen 10 mg tablet 10 mg PO QDAY Qty: 20 0RF meclizine 25 mg tablet 25 mg PO QDAY PRN (Reason: dizziness) Qty: 10 0RF duloxetine [Cymbalta] 30 mg capsule,delayed release(DR/EC) 30 mg PO BID Qty: 60 0RF Referrals: Sandy Woods FNP [Primary Care Provider] - In 1 week Problem List Clinical Impression: Anxiety disorder, Weakness generalized Patient/Caregiver Discharge Instructions Discharge Activity: activity as tolerated Education Materials: ED Weakness (Uncertain Cause) Additional Instructions: Thank you for the opportunity for serving you today. You are stable for discharged . You are advised to: Follow-up with your PCP in 1 to 2 days Return to ED for worsening of symptoms Increase oral fluids Print Language: Pashto Stand Alone Forms: Amalia Award Info., Patient Portal Info Letter
[2024-06-05] MEDS: LORazepam 2 MG/ML VIAL 1 MG IM (15:22)
== END 2024-06-05 15:29 | disposition home or self-care (01) ==
PROVIDERS: Nurse Practitioner Primary Care; Emergency Provider Emergency Medicine; PCP Registered Nurse Community Health
DX: F41.9 Anxiety disorder, unspecified (principal); R53.1 Weakness; R00.0 Tachycardia, unspecified
CPT/HCPCS: 36415; 71045; 80053; 80307; 81001; 83735; 83880; 84484; 85025; 85610; 85730; 87400; 93005; 96372; 99283; J2060

== ENCOUNTER 2024-09-08 09:59 | Outpatient (AMB) | payer MEDICARE, MEDICAID, SELFPAY ==
--- NOTE | 2024-09-08 10:14 | GSCOFFNT_ITS ---
Vital Signs - [facility] 09/08/24 10:17 Height 1.68 m Height Method Measured Weight 99.96 kg Weight Measurement Method Standing Scale BMI 35.5 BP 145/80 H Blood Pressure Source Automatic Cuff Blood Pressure Location Left Upper Arm Position Sitting Respiration 18 Pulse 85 Pulse Source Monitor Temp 97.1 F Temp Source Temporal Artery Scan Pulse Oximetry (%) 96 Oxygen Delivery Method Room Air Med/Allergies Allergies & Medications Allergies No Known Allergies Allergy (Verified 06/05/24 10:19) Medication Reconciliation escitalopram oxalate 5 mg tablet 5 mg PO QDAY 04/24/22 [History Confirmed 09/08/24] Held on 01/01/23. Instructions: Resume on 01/02/23. ferrous sulfate 325 mg (65 mg iron) tablet 325 mg PO BID 04/24/22 [History Confirmed 09/08/24] gemfibrozil 600 mg tablet 600 mg PO BID 04/24/22 [History Confirmed 09/08/24] hydrochlorothiazide 12.5 mg tablet 12.5 mg PO QAM 04/24/22 [History Confirmed 09/08/24] rjnnsc-iudjznzs-ixcbegy 36,000-114,000-180,000 unit capsule,delay rel (Creon) 1 cap PO TIDWM 04/24/22 [History Confirmed 09/08/24] mesalamine 1,000 mg rectal suppository 1,000 mg NV HS 04/24/22 [History Confirmed 09/08/24] omeprazole 40 mg capsule,delayed release 40 mg PO BID 04/24/22 [History Confirmed 09/08/24] baclofen 10 mg tablet 10 mg PO QDAY #20 tabs 02/04/23 [Rx Confirmed 09/08/24] ibuprofen 600 mg tablet (IBU) 600 mg PO Q6H #20 tabs 02/04/23 [Rx Confirmed 09/08/24] duloxetine 30 mg capsule,delayed release (Cymbalta) 30 mg PO BID #60 caps 11/17/23 [Rx Confirmed 09/08/24] meclizine 25 mg tablet 25 mg PO QDAY PRN dizziness #10 tabs 01/14/24 [Rx Confirm ed 09/08/24] MA Intake Visit Data Collection New Patient or Established: New Patient (never been to [facility]) Seen by Clinical Staff ONLY (RN/MA): No Reason for Visit:: REFERRAL LUMP RIGHT HIP Pain Present Currently: Yes Pain Location: Back and Hip Pain scale:: 4 Solaris Administrator Required: Yes PCP or OBGYN visit in last 3 months: Yes Smoking Status Smoking Status: Never smoker Immunization / Flu Flu Vaccine in the Last 12 Months: No Flu Vaccine Exclusion Criteria: Refused by Patient Past Medical History Past Medical History NEUROLOGIC: Negative Neurological Disorders or Seizures CARDIAC: Positive Cardiac Disorders, Hypercholesterolemia and Hypertension; Negative Congestive Heart Failure RESPIRATORY: Positive Pneumonia; Negative Chronic Obstructive Pulmonary Disease (COPD), Asthma, Smoking or Smoking Exposure GASTROINTESTINAL: Positive Gastrointestinal Disorders, Pancreatitis and Gastroesophageal Reflux Disease GENITOURINARY: Negative Genitourinary Disorders or Renal Disease MUSCULOSKELETAL: Positive Arthritis ENDOCRINE: Positive Endocrine Disorders; Negative Diabetes Mellitus Type 1 or Diabetes Mellitus Type 2 HEMATOLOGIC: Negative Blood Disorders or Sickle Cell Disease PSYCHO/SOCIAL: Positive Depression and Anxiety OTHER HISTORY: Positive Hospitalization and Blood Transfusions; Negative Autoimmune Disease, Blood Transfusion Reaction, Anesthesia Reactions, Chicken Pox, Measles, Mumps or Cancer Social History SMOKING STATUS: Smoking status: Never smoker ALCOHOL: Alcohol Intake: Former HOUSING: Housing: House HPI HPI Narrative Spoke to pt with in-person japanese interpreter 64M with HTN, HLD here for follow up of lipoma. Pt states that after last visit he began having memory problems, he saw a neurologist and was prescribed a medication which he states is helpful. He still has a lump at his right lower back but it feels more towards the gluteus muscle than before, and pt reports that it is more bothersome lately PMH: HTN, HLD, anxiety PSHx: Neck surgery after trauma, knee surgery Meds: No antiplt or anticoagulation Allergies:NKDA Social hx: Nonsmoker ROS Review of Systems Systems Reviewed: All systems reviewed, normal except as documented Objective/Exam General General Appearance: alert, cooperative and well groomed Resp Respiratory exam: Absent respiratory distress Back Back exam: Present other (at the superior aspect of the right gluteus there is a lipoma-like lesion deep to the skin, not obvious visually but felt with deep palpation, associated with tenderness but no overlying skin changes) Assessment & Plan Diagnosis / Problem List (1) Lipoma of back: Status: Acute Assessment & Plan: 64M with HTN, HLD referred for lipoma of his right lower back. I explained benefits/risks of excision including infection and the possibility of the lesion returning. Pt expressed understanding and would like to proceed Advanced Care Planning Advance care planning discussed with:: patient Office Procedures GNS Level of Care Nursing/Assessment Patient Status: Initial/New Patient Nursing Assessment/Reassesment: Medication Reconciliation, Update PMH in EMR and Vital Signs Coordination of Care: Complex Care and Chronic Disease 1-5, Consent,records obtained, informed consent, Education Simp Pt/Fam, 1 Ins Authorization, Results/Orders obtained and Staff clarify orders Special Needs: Language special needs New Patient Charge New Patient Point Assignment: [id number] New Patient Point Charge: HEAD CHEF Level 3 ([id number]) Patient Portal Questionaires Social History Living Situation History Housing: House Tobacco History Smoking Status: Never smoker Alcohol History Alcohol Intake: Former Review of Systems Report any current symptoms Only answer those that you have currently: Past Medical History Past Medical History Have you ever been diagnosed with any of the following: Neurological Problems Seizures: No Cardiology Problems Hypercholesterolemia: Yes Congestive Heart Failure: No Hypertension: Yes Respiratory Problems Chronic Obstructive Pulmonary Disease (COPD): No Asthma: No Pneumonia: Yes Smoking: No Smoking Exposure: No Stomache/Intestinal Problems Pancreatitis: Yes Gastroesophageal Reflux Disease: Yes Genital/Urinary Problems Renal Disease: No Musculoskeletal Problems Arthritis: Yes Endocrine Problems Diabetes Mellitus Type 1: No Diabetes Mellitus Type 2: No Blood Problems Sickle Cell Disease: No Psychologic Problems Depression: Yes Anxiety: Yes Other Problems Hospitalization: Yes Autoimmune Disease: No Blood Transfusions: Yes Blood Transfusion Reaction: No Anesthesia Reactions: No Chicken Pox: No Measles: No Mumps: No Cancer: No
[2024-09-08 10:17] VITALS: BP 145/80; PULSE 85; RESP 18; TEMP 36.2; O2SAT 96; BMI 35.5
== END 2024-09-08 10:21 | disposition home or self-care (01) ==
LOC: HODSRG 09:59
PROVIDERS: PCP Registered Nurse Community Health; Referring Provider Registered Nurse Community Health; Supervising Provider Surgery; Visit Provider Surgery
DX: D17.1 Benign lipomatous neoplasm of skin and subcutaneous tissue of trunk (principal)
CPT/HCPCS: 99203; G0463

== ENCOUNTER → 2024-09-16 | Outpatient (CLI) | payer MEDICARE, MEDICAID, SELFPAY ==
[2024-09-16 06:48] VITALS: BMI 38.2
[2024-09-16 09:19] LABS: Basophils # (Auto) 0.1 Thou/mm3 (0.0-0.2); Basophils % (Auto) 1 % (0-2.5); Eosinophils # (Auto) 0.4 Thou/mm3 (0.0-0.5); Eosinophils % (Auto) 4 % (0-10); Hematocrit 37.3 % (41.0-53.0); Hemoglobin 12.7 g/dL (13.5-16.0); Immature Granulocytes Auto 0.05 Thou/mm3 (0.00-0.00); Lymphocytes # (Auto) 2.2 Thou/mm3 (1.0-4.8); Lymphocytes % (Auto) 24 % (10-50); Mean Corpuscular HGB Conc 34.0 g/dl (31.0-37.0); Mean Corpuscular Hemoglobin 28.8 pg (25.0-35.0); Mean Corpuscular Volume 85 fL (80-100); Monocytes # (Auto) 0.7 Thou/mm3 (0.0-0.8); Monocytes % (Auto) 8 % (0-12); Neutrophils # (Auto) 5.8 Thou/mm3 (1.8-7.7); Neutrophils % (Auto) 63 % (37-80); Nucleated Red Blood Cell # 0.00 Thou/mm3 (0.00-0.00); Nucleated Red Blood Cell % 0 /100 WBC (0); Platelet Count 357 Thou/mm3 (140-440); RDW Standard Deviation 39.8 fL (35.1-43.9); Red Blood Count 4.41 Miln/mm3 (4.50-5.90); White Blood Count 9.1 Thou/mm3 (3.8-10.6)
[2024-09-16 09:31] LABS: Alanine Aminotransferase 41 U/L (10-49); Albumin, Serum 4.4 gm/dL (3.4-4.8); Albumin/Globulin Ratio 1.8 (1.2-2.2); Alkaline Phosphatase 94 U/L (46-116); Anion Gap 12 (7-16); Aspartate Amino Transferase 30 U/L (0-34); BUN/Creatinine Ratio 9 Ratio (12-20); Bilirubin,Total 0.5 mg/dL (0.3-1.2); Blood Urea Nitrogen 8 mg/dL (9-23); Calcium 9.6 mg/dL (8.3-10.6); Calcium (Corrected) 9.6 mg/dL (8.5-10.1); Carbon Dioxide 30.4 mMol/L (20.0-31.0); Chloride 97 mMol/L (98-107); Creatinine (Component) 0.9 mg/dL (0.6-1.3); Estimated Creatinine Clearance 84.8 mL/min (>60); Globulin 2.4 gm/dL (2.3-3.5); Glucose 157 mg/dL (74-106); Osmolality,Calculated 278 (275-295); Potassium 3.2 mMol/L (3.4-5.1); Sodium 139 mMol/L (136-145); Total Protein 6.8 gm/dL (5.7-8.2); eGFR > 60 See Note
[2024-09-16 09:37] LABS: INR 1.0 (0.9-1.3); Partial Thromboplastin Time 32.5 Seconds (22.0-36.0); Prothrombin Time 10.5 Seconds (9.0-12.2)
== END | disposition home or self-care (01) ==
LOC: SLAB 09-18 07:27
PROVIDERS: Anesthesiology; PCP Family Medicine; Referring Provider Surgery; Visit Provider Surgery
DX: D17.1 Benign lipomatous neoplasm of skin and subcutaneous tissue of trunk (principal)
CPT/HCPCS: 36415; 80053; 85025; 85610; 85730

== ENCOUNTER 2024-10-01 05:51 | Day surgery (SDC) | payer MEDICARE, SELFPAY ==
[2024-09-29 10:24] VITALS: BMI 38.2
[2024-09-29 12:45] LABS: Basophils # (Auto) 0.1 Thou/mm3 (0.0-0.2); Basophils % (Auto) 1 % (0-2.5); Eosinophils # (Auto) 0.4 Thou/mm3 (0.0-0.5); Eosinophils % (Auto) 5 % (0-10); Hematocrit 38.3 % (41.0-53.0); Hemoglobin 12.8 g/dL (13.5-16.0); Immature Granulocytes Auto 0.05 Thou/mm3 (0.00-0.00); Lymphocytes # (Auto) 2.2 Thou/mm3 (1.0-4.8); Lymphocytes % (Auto) 28 % (10-50); Mean Corpuscular HGB Conc 33.4 g/dl (31.0-37.0); Mean Corpuscular Hemoglobin 28.8 pg (25.0-35.0); Mean Corpuscular Volume 86 fL (80-100); Monocytes # (Auto) 0.5 Thou/mm3 (0.0-0.8); Monocytes % (Auto) 7 % (0-12); Neutrophils # (Auto) 4.7 Thou/mm3 (1.8-7.7); Neutrophils % (Auto) 60 % (37-80); Nucleated Red Blood Cell # 0.00 Thou/mm3 (0.00-0.00); Nucleated Red Blood Cell % 0 /100 WBC (0); Platelet Count 311 Thou/mm3 (140-440); RDW Standard Deviation 39.5 fL (35.1-43.9); Red Blood Count 4.44 Miln/mm3 (4.50-5.90); White Blood Count 7.9 Thou/mm3 (3.8-10.6)
[2024-09-29 12:50] LABS: Alanine Aminotransferase 36 U/L (10-49); Albumin, Serum 4.3 gm/dL (3.4-4.8); Albumin/Globulin Ratio 1.9 (1.2-2.2); Alkaline Phosphatase 100 U/L (46-116); Anion Gap 10 (7-16); Aspartate Amino Transferase 26 U/L (0-34); BUN/Creatinine Ratio 13 Ratio (12-20); Bilirubin,Total 0.4 mg/dL (0.3-1.2); Blood Urea Nitrogen 12 mg/dL (9-23); Calcium 9.1 mg/dL (8.3-10.6); Calcium (Corrected) 9.1 mg/dL (8.5-10.1); Carbon Dioxide 31.0 mMol/L (20.0-31.0); Chloride 97 mMol/L (98-107); Creatinine (Component) 0.9 mg/dL (0.6-1.3); Estimated Creatinine Clearance 84.9 mL/min (>60); Globulin 2.3 gm/dL (2.3-3.5); Glucose 233 mg/dL (74-106); Osmolality,Calculated 282 (275-295); Potassium 3.3 mMol/L (3.4-5.1); Sodium 138 mMol/L (136-145); Total Protein 6.6 gm/dL (5.7-8.2); eGFR > 60 See Note
[2024-09-29 12:51] LABS: INR 0.9 (0.9-1.3); Partial Thromboplastin Time 29.8 Seconds (22.0-36.0); Prothrombin Time 10.3 Seconds (9.0-12.2)
[2024-10-01] VITALS (7 sets, daily range): BP systolic 98–124; BP diastolic 63–72; PULSE 74–80; RESP 12–17; TEMP 36.3–36.8; O2SAT 95–97; BMI 37.3
[2024-10-01] MEDS: RINGERS LACTATED 1000 ML 1,000 ML 20 ML IV (06:50)
--- NOTE | 2024-10-01 09:26 | SUR.PHASEII ---
pt received from OR in recovery bay 5. pt awake and alert, breathing unlabored on room air. v/s stable. pt dressing to right buttocks cdi. report received from Mavis WILEY and Dr. Quinones.
--- NOTE | 2024-10-01 09:31 | PD.SUROPNT ---
Date of Procedure 10/01/24 Pre Op Diagnosis Right gluteal lipoma Post Op Diagnosis Same Procedure Excision of right gluteal lipoma Findings Right gluteal lipoma Procedure Description After discussion of risks and benefits, patient was brought to the OR, SCDs were placed and MAC anesthesia was induced. He was placed in left lateral decubitus position with proper padding and was prepped and draped in usual sterile fashion. He received preoperative antibiotics. After timeout an elliptical incision was planned which was 3 cm in transverse dimension and 1 cm in craniocaudal dimension. The skin was infiltrated with half percent Marcaine and anesthesia was confirmed with an Adson before incision was made with a #15 blade. The subcutaneous tissue was dissected with electrocautery and the lipomatous tissue was dissected circumferentially with electrocautery and sent off as specimen. The wound was irrigated and hemostasis was achieved with electrocautery. The remaining half percent Marcaine was given for a total of 30 cc. The subcutaneous tissue was closed with 2-0 Vicryl interrupted sutures and the skin was approximated with 2-0 nylon vertical mattress sutures. The wound was covered with Telfa, gauze and Tegaderm. Patient was returned to supine position and awoken without complication. He was brought to PACU in stable condition Pathology / specimen Other (Right gluteal lipoma) Estimated Blood Loss 10 Surgeon Odalis Max MD Surgical Staff Operation Date: 10/01/24 07:45 Case Staff Anesthesiologist: Marlon Quinones
--- NOTE | 2024-10-01 09:37 | PD.SURDS ---
Planned Discharge Date 10/01/24 DS: Providers Provider Primary care physician: RAAD Ch MD Attending Provider on Admission: Odalis Max MD Attending Provider on DC: Odalis Max MD Discharging Provider: Odalis Max MD Diagnosis Discharge Diagnosis (1) Lipoma of buttock: Status: Acute Problem List Completed Was Problem List Reviewed/Reconciled?: Yes Exam Vital Signs Temp Pulse Resp BP Pulse Ox 97.4 F 75 14 102/63 95 10/01/24 09:35 10/01/24 09:35 10/01/24 09:35 10/01/24 09:35 10/01/24 09:35 Discharge Plan Plan Patient Disposition: HOME (Self Care) Prescriptions/Referrals Prescriptions/Med Rec: New tramadol 50 mg tablet 50 mg PO Q8H PRN (Reason: pain) Qty: 20 0RF Rx Instructions: Take every 8 hours as needed for moderate to severe pain No Action omeprazole 40 mg capsule,delayed release(DR/EC) 40 mg PO BID Patient Comments: TOME 1 CAPSULA POR LA BOCA DOS VECES AL EMI PARA EL ESTOMAGO mesalamine 1,000 mg suppository 1,000 mg NH HS Patient Comments: INSERT 1 SUPPOSITORY RECTALLY ONCE A DAY AT BEDTIME duloxetine [Cymbalta] 30 mg capsule,delayed release(DR/EC) 30 mg PO BID Qty: 60 0RF Zenpep 40,000-126,000- 168,000 unit capsule,delayed release(DR/EC) 1 cap PO TID Rx Instructions: administer with meals and/or snacks gabapentin 100 mg capsule 200 mg PO HS Patient Comments: TOME 2 CAPSULAS POR LA BOCA EN LA NOCHE PARA DOLOR DE ESPALDA losartan-hydrochlorothiazide 100-25 mg tablet 1 tab PO DAILY Patient Comments: TOME 1 TABLETA POR LA BOCA SHY VES AL EMI EN LA MANANA buprenorphine-naloxone [Suboxone] 12-3 mg film 1 film buccal BID Referrals: Odalis Max MD [Physician] - (You will receive a phone call to confirm a follow-up appointment with me in 2 weeks) Grant Day MD [Primary Care Provider] - Patient/Caregiver Discharge Instructions Other Discharge Activity Instructions:: You may remove your outer dressing in 2 days, on 10/03 After that is okay to get the incision wet. Pat dry after Your stitches will be removed at your follow-up appoint If you develop worsening pain, fever, redness and/or drainage from the incision please call the office if during business hours or seek care in ER Education Materials: Anesthesia MAC, Incision Care Dc, Preventing Surgical Site Infections, Understanding a Lipoma, [facility] General Discharge-C[place] Verdean Print Language: [place]de[place] Stand Alone Forms: Amalia Award Info., Patient Portal Info Letter Discharge Order Discharge Orders: Discharge (Routine); Ordered 10/01/24 Ordered By: Odalis Max Results Results: Laboratory Laboratory results: results reviewed PROCEDURES: Procedure Date 10/01/24 Procedures Excision of right gluteal lipoma
--- NOTE | 2024-10-01 10:01 | SUR.PHASEII ---
pt able to tolerate oral fluids without difficulty swallowing or nausea/vomiting.
--- NOTE | 2024-10-01 10:37 | SUR.PHASEII ---
pt awake and alert, breathing unlabored on room air. v/s stable. pt dressing to right buttocks cdi. pt able to ambulate to wheelchair. d/c instructions given other the phone (child presence) using first line supervisor Royal Woodard and pt in room, all questions answered. pt d/c via wheelchair with all belongings.
== END 2024-10-01 10:37 | disposition home or self-care (01) ==
PROVIDERS: Anesthesiology; PCP Family Medicine; Referring Provider Surgery; Visit Provider Surgery
PROC: (CPT 27043; principal; 2024-10-01 07:30)
DX: D17.1 Benign lipomatous neoplasm of skin and subcutaneous tissue of trunk (principal); I10 Essential (primary) hypertension
CPT/HCPCS: 27043; 36415; 80053; 85025; 85610; 85730; A4217; A4649; J0690; J1885; J2250; J2704; J3010; J3490; J7120

== ENCOUNTER 2024-10-09 07:32 | Emergency (ER) | payer MEDICARE, MEDICAID, SELFPAY ==
[2024-10-09 07:42] VITALS: BP 138/79; PULSE 100; RESP 18; TEMP 36.9; O2SAT 96; BMI 34.2
--- NOTE | 2024-10-09 07:55 | PD.EDRME ---
Rapid Medical Screening Exam RME Arrival date/time: 10/09/24 07:32 Chief Complaint: Abdominal Pain Vital signs: Vital Signs Temperature 98.5 F 10/09/24 07:42 Pulse Rate 100 10/09/24 07:42 Respiratory Rate 18 10/09/24 07:42 Blood Pressure 138/79 H 10/09/24 07:42 Pulse Oximetry (%) 96 10/09/24 07:42 Pulse ox is 96% room air Vital signs reviewed by provider: Yes [facility] Narrative: 64-year-old male presents to the ED with a complaint of swollen legs and a sensation of generalized weakness. Also complains of dizzy spells this began approximately 1 week ago. Denies nausea, vomiting, diarrhea.
--- NOTE | 2024-10-09 07:59 | XR_ITS ---
Examination: CT brain head without contrast. 2-D sagittal coronal reconstructions Date and time of exam:October 09, 2024 0820 hours Comparison January 31, 2024 INDICATIONS: Weakness altered mental status dizziness today CTDI: vol (mGy):48.9 DLP: (mGycm):1025 Technique: Multiple CT axial sections of the brain have been obtained, 5 mm slice thickness. Contrast has not been administered. 2-D sagittal, coronal reconstructions have been obtained Low dose protocols were performed. One or more of the following dose reduction techniques were used; automated exposure control, adjustment of the mA and/or KV according to patient size, use of iterative reconstruction technique. Findings: No significant ventricular enlargement. Stable subarachnoid cyst right temporal lobe tip Intra-axial or extra-axial hemorrhage density is not seen. No mass effect or midline shift Basal cisterns are not remarkable. Fourth ventricle is midline. Cranial vault intact. Impression: Negative for acute hemorrhage, mass effect or midline shift As clinically warranted, brain MRI follow-up would best assess for acute ischemic change
--- NOTE | 2024-10-09 07:59 | EKG_ITS ---
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
[2024-10-09 08:36] VITALS: BP 126/71; PULSE 85; RESP 16; TEMP 36.9; O2SAT 95
[2024-10-09 09:00] LABS: Basophils # (Auto) 0.1 Thou/mm3 (0.0-0.2); Basophils % (Auto) 1 % (0-2.5); Eosinophils # (Auto) 0.4 Thou/mm3 (0.0-0.5); Eosinophils % (Auto) 8 % (0-10); Hematocrit 35.9 % (41.0-53.0); Hemoglobin 12.1 g/dL (13.5-16.0); Immature Granulocytes Auto 0.03 Thou/mm3 (0.00-0.00); Lymphocytes # (Auto) 1.2 Thou/mm3 (1.0-4.8); Lymphocytes % (Auto) 23 % (10-50); Mean Corpuscular HGB Conc 33.7 g/dl (31.0-37.0); Mean Corpuscular Hemoglobin 28.4 pg (25.0-35.0); Mean Corpuscular Volume 84 fL (80-100); Monocytes # (Auto) 0.5 Thou/mm3 (0.0-0.8); Monocytes % (Auto) 10 % (0-12); Neutrophils # (Auto) 3.0 Thou/mm3 (1.8-7.7); Neutrophils % (Auto) 58 % (37-80); Nucleated Red Blood Cell # 0.00 Thou/mm3 (0.00-0.00); Nucleated Red Blood Cell % 0 /100 WBC (0); Platelet Count 275 Thou/mm3 (140-440); RDW Standard Deviation 39.1 fL (35.1-43.9); Red Blood Count 4.26 Miln/mm3 (4.50-5.90); White Blood Count 5.2 Thou/mm3 (3.8-10.6)
[2024-10-09 09:41] LABS: Alanine Aminotransferase 33 U/L (10-49); Albumin, Serum 4.0 gm/dL (3.4-4.8); Albumin/Globulin Ratio 1.9 (1.2-2.2); Alkaline Phosphatase 90 U/L (46-116); Anion Gap 5 (7-16); Aspartate Amino Transferase 31 U/L (0-34); BUN/Creatinine Ratio 13 Ratio (12-20); Bilirubin,Total 0.4 mg/dL (0.3-1.2); Blood Urea Nitrogen 10 mg/dL (9-23); Calcium 8.9 mg/dL (8.3-10.6); Calcium (Corrected) 8.9 mg/dL (8.5-10.1); Carbon Dioxide 32.8 mMol/L (20.0-31.0); Chloride 99 mMol/L (98-107); Creatinine (Component) 0.8 mg/dL (0.6-1.3); Estimated Creatinine Clearance 100.0 mL/min (>60); Globulin 2.1 gm/dL (2.3-3.5); Glucose 194 mg/dL (74-106); Lipase 31 U/L (12-53); Osmolality,Calculated 277 (275-295); Potassium 3.2 mMol/L (3.4-5.1); Procalcitonin 0.07 ng/ml (0.0-0.49); Sodium 137 mMol/L (136-145); Total Protein 6.1 gm/dL (5.7-8.2); eGFR > 60 See Note
[2024-10-09 10:04] VITALS: BP 127/78; PULSE 89; RESP 20; TEMP 36.9; O2SAT 95
--- NOTE | 2024-10-09 10:35 | PC.CC ---
Latasha AVILES was consulted by XIOMY Nieves for community resources for the patient as he reports he has moments of depression. Latasha AVILES made face to face contact with patient introduced self, role, and reason for visit to the patient. Patient appeared to be alert and oriented to self, location, and situation. Patient confirmed information on demographics and reports to living at home with his , Cecilia Walton . Patient reports his brought him to the hospital today because he was having dizziness and generalized weakness. Patient reports he has a son that is 23 years-old that was born disabled and has seizures. He reports that seeing his son suffer makes him sad. IN HOME NANNY explored with patient if he had suicidal or homicidal ideations to which he denied. Patient denied visual and auditory hallucinations. IN HOME NANNY explored with the patient if he would like for this rfp writer to make him an appointment to outpatient mental health services to help him process his feelings regarding his son. Patient said no. Patient was receptive to a [facility] Community Resource Guide with information to mental health services and Hotline information.
--- NOTE | 2024-10-09 10:44 | PD.EDDIZZY ---
ED Dizzyness RME/HPI General Chief Complaint: Abdominal Pain Stated Complaint: DIZZY, WEAKNESS, SWEATY , NAUSEA X 1 WK, VOMIT AM Arrival date/time: 10/09/24 07:32 Limitations: no limitations RME / HPI RME / HPI Narrative: 64-year-old male presents to the ED with a complaint of swollen legs and a sensation of generalized weakness. Also complains of dizzy spells this began approximately 1 week ago. Denies nausea, vomiting, diarrhea. DR. CUTLER MAIN ED EVALUATION: 64 year old male with history of hypertension, hyperlipidemia, currently on Suboxone presents to the ED for evaluation of dizziness beginning 1 week ago. Described feeling globally weak and fatigued. Accompanied by leg swelling, sweating, and I feel something in my head . Additionally complains of decreased appetite and nausea. No other associated symptoms reported. Denies fevers, chills, chest pain, cough, vomiting, change in bowel habits, or urinary symptoms. Patient reports he has an appointment with his PCP 10/29/2024. Related Data Home Medications ?Medication ?Instructions ?Recorded ?Confirmed mesalamine 1,000 mg rectal 1,000 mg CO HS 04/24/22 09/29/24 suppository omeprazole 40 mg capsule,delayed 40 mg PO BID 04/24/22 09/29/24 release buprenorphine 12 mg-naloxone 3 mg 1 film buccal BID 09/16/24 09/29/24 sublingual film (Suboxone) gabapentin 100 mg capsule 200 mg PO HS 09/16/24 09/29/24 abyjif-jtgqzmnm-hodqnws 1 cap PO TID 09/16/24 09/29/24 40,000-126,000-168,000 unit capsule, delay rel (Zenpep) losartan 100 1 tab PO DAILY 09/16/24 09/29/24 mg-hydrochlorothiazide 25 mg tablet Previous Rx's ?Medication ?Instructions ?Recorded duloxetine 30 mg capsule,delayed 30 mg PO BID #60 caps 11/17/23 release (Cymbalta) tramadol 50 mg tablet 50 mg PO Q8H PRN pain #20 tabs 10/01/24 Allergies Allergy/AdvReac Type Severity Reaction Status Date / Time No Known Allergies Allergy Verified 10/09/24 07:36 Review of Systems Review of Systems Systems Reviewed: All systems reviewed, normal except as documented Past Medical History Past Medical History NEUROLOGIC: Positive Dementia (seeing a neurologist, has improved with depression med) CARDIAC: Positive Cardiac Disorders, Hypercholesterolemia and Hypertension RESPIRATORY: Positive Pneumonia GASTROINTESTINAL: Positive Gastrointestinal Disorders, Pancreatitis and Gastroesophageal Reflux Disease MUSCULOSKELETAL: Positive Musculoskeletal Disorders and Arthritis ENT: Positive Cataracts PSYCHO/SOCIAL: Positive Depression and Anxiety OTHER HISTORY: Positive Hospitalization Family History FAMILY HISTORY: Positive Family Psychiatric Problems and Family Cardiac Disorders Social History SMOKING STATUS: Never smoker SUBSTANCE USE: does not use ED Exam General Limitations: Present no limitations General appearance: Present alert and in no apparent distress Head Head exam: Present atraumatic, normocephalic and normal inspection Eye Eye exam: Present normal appearance, PERRL and EOMI ENT ENT exam: Present normal exam, normal oropharynx and mucous membranes moist Neck Neck exam: Present normal inspection, full ROM and trachea midline Chest Chest inspection: Present normal inspection and symmetric chest wall rise Respiratory Respiratory exam: Present normal lung sounds bilaterally Cardiovascular Cardiovascular exam: Present regular rate, normal rhythm and normal heart sounds Abdominal Exam Abdominal exam: Present soft and normal bowel sounds Extremities Exam Extremities exam: Present full ROM and other (edema bilateral lower extremities 2-3+, L>R. ); Absent tenderness Back Exam Back exam: Present normal inspection and full ROM Neurological Exam Neurological exam: Present alert, oriented X3 and CN II-XII intact; Absent motor sensory deficit Psychiatric Psychiatric exam: Present normal affect and normal mood Skin Skin exam: Present warm, dry, intact and normal color Course Quality Measures none Orders Category Date Time Status Bedside COVID-19 Antigen Test NOW Care 10/09/24 08:01 Active Bedside Influenza A&B Antigen Test NOW Care 10/09/24 09:00 Completed EKG (ED ONLY) *Do not use* NOW Care 10/09/24 08:[address] head/brain wo con Stat Exams 10/09/24 07:59 Completed EKG (ED Only) Stat Exams 10/09/24 07:59 Draft CBC Stat Lab 10/09/24 08:55 Completed Comprehensive Metabolic Panel Stat Lab 10/09/24 08:55 Completed Lipase Stat Lab 10/09/24 08:55 Completed Procalcitonin Stat Lab 10/09/24 08:55 Completed Urinalysis Stat Lab 10/09/24 10:42 Completed Potassium Chloride [K-Dur] Med 10/09/24 10:35 Discontinued 40 meq PO X1 ONE Vital Signs Vital signs: Vital Signs Temperature 98.5 F 10/09/24 07:42 Pulse Rate 100 10/09/24 07:42 Respiratory Rate 18 10/09/24 07:42 Blood Pressure 138/79 H 10/09/24 07:42 Pulse Oximetry (%) 96 10/09/24 07:42 Pulse ox is 96% on room air which is adequate. Dizziness MDM Narrative MDM Narrative:: Virginia Mcgowan am scribing for and in the presence of Dr. Cutler. Patient data External records reviewed:: [facility] previous records (I reviewed H&P on 10/01/2024 ) Clinical information provided by:: patient Social determinants that could affect healthcare access:: none Patient has the following chronic illnesses:: hypertension, hyperlipidemia, currently on Suboxone How is presenting disease/condition affected by chronic disease/condition?: exacerbated by Evaluation data The following diagnostics were reviewed and interpreted by me:: lab results, radiology exam(s) and EKG tracing(s) (10/17/2024 @ 08:08 AM. Sinus rhythm, rate 94, artifact noted, CO 153 ms, QT 348 ms, QTC 437 ms, no STEMI. ) Lab and/or radiology exams considered but not ordered:: None Interpretation Summary: Ordering Physician: Les Nieves PA-C Date of Service: 10/09/24 Procedure(s): CT head/brain wo con Accession Number(s): [id number] cc: Kobi Samson MD; Les Nieves PA-C~ Examination: CT brain head without contrast. 2-D sagittal coronal reconstructions Date and time of exam:October 09, 2024 0820 hours Comparison January 31, 2024 INDICATIONS: Weakness altered mental status dizziness today CTDI: vol (mGy):48.9 DLP: (mGycm):1025 Technique: Multiple CT axial sections of the brain have been obtained, 5 mm slice thickness. Contrast has not been administered. 2-D sagittal, coronal reconstructions have been obtained Low dose protocols were performed. One or more of the following dose reduction techniques were used; automated exposure control, adjustment of the mA and/or KV according to patient size, use of iterative reconstruction technique. Findings: No significant ventricular enlargement. Stable subarachnoid cyst right temporal lobe tip Intra-axial or extra-axial hemorrhage density is not seen. No mass effect or midline shift Basal cisterns are not remarkable. Fourth ventricle is midline. Cranial vault intact. Impression: Negative for acute hemorrhage, mass effect or midline shift As clinically warranted, brain MRI follow-up would best assess for acute ischemic change Dictated By: Kobi Samson MD Signed By: <Electronically signed by Kobi Samson MD in OV> 10/09/24 0904 Medications / Prescriptions Medications or Prescriptions considered but not ordered:: None Medication administrations:: Medication Administration History Discontinued Medications Potassium Chloride (Potassium Chloride 20 Meq Tabcr) 40 meq PO X1 ONE Stop: 10/09/24 10:36 Last Admin: 10/09/24 11:07 Dose: 40 meq Documented By: TM See above Consultations Consultation(s) initiated? (list below): No Diagnosis Most likely diagnosis given after review of the tests above:: weakness hypokalemia neuropathy venous insufficiency Admission Indicated Admission indicated?: not indicated Admission Request Was there a request for admission?: No Disposition Plan Disposition Plan: Discharge Discharge Attestation Discharge Attestation: The patient and all family members were given an opportunity to ask questions and understood the discharge instructions. Discharge instructions specifically effects, indications for sooner follow up or return to the emergency department, and the expected course of current diagnosis. Patient condition: Stable Discharge Plan Plan Patient Disposition: HOME (Self Care) Prescriptions/Referrals Prescriptions/Med Rec: No Action omeprazole 40 mg capsule,delayed release(DR/EC) 40 mg PO BID Patient Comments: TOME 1 CAPSULA POR LA BOCA DOS VECES AL EMI PARA EL ESTOMAGO mesalamine 1,000 mg suppository 1,000 mg CO HS Patient Comments: INSERT 1 SUPPOSITORY RECTALLY ONCE A DAY AT BEDTIME tramadol 50 mg tablet 50 mg PO Q8H PRN (Reason: pain) Qty: 20 0RF Rx Instructions: Take every 8 hours as needed for moderate to severe pain duloxetine [Cymbalta] 30 mg capsule,delayed release(DR/EC) 30 mg PO BID Qty: 60 0RF Zenpep 40,000-126,000- 168,000 unit capsule,delayed release(DR/EC) 1 cap PO TID Rx Instructions: administer with meals and/or snacks gabapentin 100 mg capsule 200 mg PO HS Patient Comments: TOME 2 CAPSULAS POR LA BOCA EN LA NOCHE PARA DOLOR DE ESPALDA losartan-hydrochlorothiazide 100-25 mg tablet 1 tab PO DAILY Patient Comments: TOME 1 TABLETA POR LA BOCA LUCIA VES AL EMI EN LA MANANA buprenorphine-naloxone [Suboxone] 12-3 mg film 1 film buccal BID Referrals: Caleb Ch MD [Primary Care Provider] - In 1 week Problem List Clinical Impression: Weakness, Hypokalemia, Neuropathy, Venous insufficiency Patient/Caregiver Discharge Instructions Education Materials: ED Hypokalemia, ED Neuropathy, Peripheral, ED Weakness (Uncertain Cause) Additional Instructions: Follow-up with your primary care doctor in 1-2 days for recheck. I recommend you elevate your legs above heart level and bed rest for 2-3 days. Take your medications as prescribed. You can return to the emergency department sooner if symptoms worsen or if you notice any new, concerning issues. Acuda a lucia consulta de seguimiento con romo m?dico de cabecera en 1 o 2 d?as para lucia nueva evaluaci?n. Le recomiendo mantener las piernas en alto y reposo en cama vanda 2 o 3 d?as. [place] noemi medicamentos seg?n lo prescrito. Puede regresar a urgencias antes si los s?ntomas empeoran o si nota alg?n problema nuevo que le preocupe. Print Language: Korean Stand Alone Forms: Amalia Award Info., Patient Portal Info Letter
[2024-10-09 10:49] LABS: Collection Type, Urine Clean Catch; Squamous Epithelial Cell,Urine 0 /hpf (0-5)
[2024-10-09 10:54] LABS: Bilirubin,Urine Negative (Negative); Blood,Urine Negative (Negative); Clarity,Urine Clear (Clear/Hazy); Color,Urine Yellow (Lt Yel-Yel); Glucose, Urine Negative (Negative); Ketones,Urine Negative (Negative); Leukocyte Esterase,Urine Negative (Negative); Nitrite,Urine Negative (Negative); PH,Urine 7.0 (5.0-7.0); Protein,Urine Negative (Neg - Trace); RBC,Urine 1 /hpf (0-3); Specific Gravity,Urine 1.020 (1.001-1.035); Urobilinogen,Urine Negative mg/dL (0.0-1.0); WBC,Urine 1 /hpf (0-5)
[2024-10-09 12:15] VITALS: BP 131/71; PULSE 79; RESP 19; TEMP 36.7; O2SAT 95
== END 2024-10-09 12:30 | disposition home or self-care (01) ==
PROVIDERS: Physician Assistant; Emergency Provider Family Medicine; PCP Family Medicine
DX: E87.6 Hypokalemia (principal); G62.9 Polyneuropathy, unspecified; I87.2 Venous insufficiency (chronic) (peripheral); R53.1 Weakness; I10 Essential (primary) hypertension; E78.00 Pure hypercholesterolemia, unspecified; R42 Dizziness and giddiness
CPT/HCPCS: 36415; 70450; 80053; 81001; 83690; 84145; 85025; 87400; 87502; 87811; 93005; 99283; A9270

== ENCOUNTER 2024-10-13 10:53 | Outpatient (AMB) | payer MEDICARE, SELFPAY ==
--- NOTE | 2024-10-13 11:06 | GSCOFFNT_ITS ---
Vital Signs - [facility] 10/13/24 11:09 Height 1.68 m Height Method Measured Weight 95.453 kg Weight Measurement Method Standing Scale BMI 33.8 BP 132/75 H Blood Pressure Source Automatic Cuff Blood Pressure Location Right Upper Arm Position Sitting Respiration 18 Pulse 85 Pulse Source Monitor Temp 97.4 F Temp Source Temporal Artery Scan Pulse Oximetry (%) 94 L Oxygen Delivery Method Room Air Med/Allergies Allergies & Medications Allergies No Known Allergies Allergy (Verified 10/13/24 11:10) Medication Reconciliation mesalamine 1,000 mg rectal suppository 1,000 mg NE HS 04/24/22 [History Confirmed 10/13/24] omeprazole 40 mg capsule,delayed release 40 mg PO BID 04/24/22 [History Confirmed 10/13/24] duloxetine 30 mg capsule,delayed release (Cymbalta) 30 mg PO BID #60 caps [Rx Confirmed 10/13/24] buprenorphine 12 mg-naloxone 3 mg sublingual film (Suboxone) 1 film buccal BID 09/16/24 [History Confirmed 10/13/24] gabapentin 100 mg capsule 200 mg PO HS 09/16/24 [History Confirmed 10/13/24] fxfqbo-yjqnnzyz-mdjsple 40,000-126,000-168,000 unit capsule, delay rel (Zenpep) 1 cap PO TID 09/16/24 [History Confirmed 10/13/24] losartan 100 mg-hydrochlorothiazide 25 mg tablet 1 tab PO DAILY 09/16/24 [History Confirmed 10/13/24] tramadol 50 mg tablet 50 mg PO Q8H PRN pain #20 tabs 10/01/24 [Rx Confirmed 10/13/24] MA Intake Visit Data Collection New Patient or Established: Established Patient (seen at [facility] within 3 years) Seen by Clinical Staff ONLY (RN/MA): No Pain Present Currently: Yes Pain scale:: 5 Pain Scale Used: 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: 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 PCP or OBGYN visit in last 3 months: Yes Hx Now: No Do You Feel Safe at Home: Yes Authorities Contacted: N/A Smoking Status Smoking Status: Never smoker Immunization / Flu Flu Vaccine in the Last 12 Months: No Flu Vaccine Exclusion Criteria: No Exclusion Criteria Past Medical History Past Medical History NEUROLOGIC: Positive Dementia (seeing a neurologist, has improved with depression med); Negative Neurological Disorders (Left sided weakness had accident at 17 yrs old) or Seizures CARDIAC: Positive Cardiac Disorders, Hypercholesterolemia and Hypertension; Negative Congestive Heart Failure RESPIRATORY: Positive Pneumonia; Negative Chronic Obstructive Pulmonary Disease (COPD), Asthma, Smoking or Smoking Exposure GASTROINTESTINAL: Positive Gastrointestinal Disorders, Pancreatitis and Gastroesophageal Reflux Disease GENITOURINARY: Negative Genitourinary Disorders or Renal Disease MUSCULOSKELETAL: Positive Arthritis ENT: Positive Cataracts ENDOCRINE: Negative Endocrine Disorders, Diabetes Mellitus Type 1 or Diabetes Mellitus Type 2 HEMATOLOGIC: Negative Blood Disorders or Sickle Cell Disease PSYCHO/SOCIAL: Positive Depression and Anxiety OTHER HISTORY: Positive Hospitalization; Negative Autoimmune Disease, Blood Transfusions, Anesthesia Reactions, Chicken Pox, Measles, Mumps or Cancer Family History FAMILY HISTORY: Positive Family Psychiatric Problems and Family Cardiac Disorders; Negative Family Respiratory Disorders, Family Gastrointestinal Problems, Family Cancer, Family Surgery or Family Anesthesia Reaction Social History SMOKING STATUS: Smoking status: Never smoker ALCOHOL: Alcohol Intake: Former HOUSING: Housing: House HPI HPI Narrative 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 Pt reports feeling better after the lesion was removed, and he has only minimal pain at the site not currently taking any medications. He denies any fever or drainage ROS Review of Systems Systems Reviewed: All systems reviewed, normal except as documented Objective/Exam General General Appearance: alert, cooperative and well groomed Resp Respiratory exam: Absent respiratory distress Back Back exam: Present other (superior right gluteal incision with sutures intact which were removed today, no erythema, no fluctuance or tenderness) Results Pathology of lesion reviewed Assessment & Plan Diagnosis / Problem List (1) Lipoma of buttock: Status: Acute Assessment & Plan: 64M s/p excision of right gluteal fatty tissue 10/01/24, recovering well with sutures removed today Plan: Follow up as needed Advanced Care Planning Advance care planning discussed with:: other Office Procedures GNS Level of Care Nursing/Assessment Patient Status: Established Patient Nursing Assessment/Reassesment: Medication Reconciliation, Update PMH in EMR and Vital Signs Coordination of Care: Complex Care and Chronic Disease 1-5, Consent,records obtained, informed consent, Education Simp Pt/Fam, Results/Orders obtained and Staff clarify orders Special Needs: Language special needs Established Patient Charge Established Patient Point Assignment: 90 Established Patient Point Charge: Level 3 (80-115) Patient Portal Questionaires Social History Living Situation History Housing: House Tobacco History Smoking Status: Never smoker Alcohol History Alcohol Intake: Former Domestic Abuse History Do You Feel Safe at Home: Yes Review of Systems Report any current symptoms Only answer those that you have currently: Past Medical History Past Medical History Have you ever been diagnosed with any of the following: Neurological Problems Dementia: Yes (seeing a neurologist, has improved with depression med) Seizures: No Cardiology Problems Hypercholesterolemia: Yes Congestive Heart Failure: No Hypertension: Yes Respiratory Problems Chronic Obstructive Pulmonary Disease (COPD): No Asthma: No Pneumonia: Yes Smoking: No Smoking Exposure: No Stomache/Intestinal Problems Pancreatitis: Yes Gastroesophageal Reflux Disease: Yes Genital/Urinary Problems Renal Disease: No Musculoskeletal Problems Arthritis: Yes Head,Eye,Nose,Throat Problems Cataracts: Yes Endocrine Problems Diabetes Mellitus Type 1: No Diabetes Mellitus Type 2: No Blood Problems Sickle Cell Disease: No Psychologic Problems Depression: Yes Anxiety: Yes Other Problems Hospitalization: Yes Autoimmune Disease: No Blood Transfusions: No Anesthesia Reactions: No Chicken Pox: No Measles: No Mumps: No Cancer: No
[2024-10-13 11:09] VITALS: BP 132/75; PULSE 85; RESP 18; TEMP 36.3; O2SAT 94; BMI 33.8
== END 2024-10-13 11:26 | disposition home or self-care (01) ==
PROVIDERS: PCP Family Medicine; Referring Provider Family Medicine; Supervising Provider Surgery; Visit Provider Surgery
DX: Z48.817 Encounter for surgical aftercare following surgery on the skin and subcutaneous tissue (principal)
CPT/HCPCS: 99213; G0463

== ENCOUNTER 2024-10-16 07:32 | Emergency (ER) | payer MEDICARE, SELFPAY ==
[2024-10-16 07:44] VITALS: PULSE 83; RESP 18; O2SAT 97
[2024-10-16 07:58] VITALS: BP 122/81; PULSE 91; RESP 20; TEMP 37.1; O2SAT 96; BMI 33.0
--- NOTE | 2024-10-16 08:04 | EDNOTE_ITS ---
<Statement entered by Angela Perez MD - 10/16/24 09:38> As co-signing physician, I was present and available for consult prn. I concur with the plan and care as documented by the midlevel provider. ED General RME/HPI General Chief complaint: Dizziness Stated complaint: BODY PAIN Time Seen by Provider: 10/16/24 07:58 Arrival date/time: 10/16/24 07:32 CC: Morning dizziness HPI ongoing for 1 week. The patient denies any fever chest pain shortness of breath or difficulty breathing. Patient is medical records show that he has been here multiple times for anxiety in the past, last visit with for hypokalemia. The more you asked the more the patient has in terms of minor complaints. Related Data Home Medications ?Medication ?Instructions ?Recorded ?Confirmed mesalamine 1,000 mg rectal 1,000 mg [place] HS 04/24/2207/04 suppository omeprazole 40 mg capsule,delayed 40 mg PO BID 04/24/22 10/13/24 release buprenorphine 12 mg-naloxone 3 mg 1 film buccal BID 10/13/24 sublingual film (Suboxone) gabapentin 100 mg capsule 200 mg PO HS 09/16/24 [id number] 1 cap PO TID 09/16/24 40,000-126,000-168,000 unit capsule, delay rel (Zenpep) losartan 100 1 tab PO DAILY 09/16/24 08/ 4/25 mg-hydrochlorothiazide 25 mg tablet Previous Rx's ?Medication ?Instructions ?Recorded duloxetine 30 mg capsule,delayed 30 mg PO BID #60 caps 11/17/23 release (Cymbalta) tramadol 50 mg tablet 50 mg PO Q8H PRN pain #20 ta bs 10/01/24 Allergies Allergy/AdvReac Type Severity Reaction Status Date / Time No Known Allergies Allergy Verified 10/16/24 07:51 Review of Systems Review of Systems Narrative Review of Systems: GEN: No fever, no chills, no weight loss EYES: No discharge, no visual changes, no pain HEENT: No ear pain, no congestion, no sore throat PULM: No shortness of breath, no cough, no congestion CV: No chest pain, no dyspnea on exertion, no palpitations GI: No nausea, no vomiting, no diarrhea, no pain, no constipation : No frequency, no urgency, no dysuria MUSC/SKEL: No joint pain, no back pain SKIN: No rash PSYCH: No hallucinations, no depression HEME/LYMPH: No easy bleeding or bruising tendencies NEURO: No weakness, no headache,+ dizziness Past Medical History Past Medical History NEUROLOGIC: Positive Dementia (seeing a neurologist, has improved with depression med); Negative Neurological Disorders (Left sided weakness had accident at 17 yrs old) or Seizures CARDIAC: Positive Cardiac Disorders, Hypercholesterolemia and Hypertension; Negative Congestive Heart Failure RESPIRATORY: Positive Pneumonia; Negative Chronic Obstructive Pulmonary Disease (COPD), Asthma, Smoking or Smoking Exposure GASTROINTESTINAL: Positive Gastrointestinal Disorders, Pancreatitis and Gastroesophageal Reflux Disease GENITOURINARY: Negative Genitourinary Disorders or Renal Disease MUSCULOSKELETAL: Positive Musculoskeletal Disorders and Arthritis ENT: Positive Cataracts ENDOCRINE: Negative Endocrine Disorders, Diabetes Mellitus Type 1 or Diabetes Mellitus Type 2 HEMATOLOGIC: Negative Blood Disorders or Sickle Cell Disease PSYCHO/SOCIAL: Positive Depression and Anxiety OTHER HISTORY: Positive Hospitalization; Negative Autoimmune Disease, Blood Transfusions, Anesthesia Reactions, Chicken Pox, Measles, Mumps or Cancer Family History FAMILY HISTORY: Positive Family Psychiatric Problems and Family Cardiac Disorders; Negative Family Respiratory Disorders, Family Gastrointestinal Problems, Family Cancer, Family Surgery or Family Anesthesia Reaction Social History SMOKING STATUS: Former smoker SUBSTANCE USE: does not use ED Exam Narrative Physical exam: [General: Obese anxious but not in any acute distress Head normocephalic HEENT: Within acceptable limits Neck is supple nontender Chest equal chest rise nontender to palpation Respiratory: Clear to auscultation no wheezes crackles or rubs CV: Rate rhythm is regular no murmurs rubs or clicks Abdomen is distended secondary to body habitus soft nontender no masses positive bowel sounds all 4 quadrants Back: No CVA tenderness no spinous process tenderness from cervical spine thoracic and lumbar spine Skin: Intact no petechiae rash induration ulceration or crepitus Extremities: Moving all extremity against resistance cap refill less than 2 seconds neurosensory intact Neuro: Awake alert oriented x3 Glascow coma 15 no focal deficits] Course Quality Measures none Orders Category Date Time Status EKG (ED ONLY) *Do not use* NOW Care 10/16/24 07:51 Completed EKG (ED Only) Stat Exams 10/16/24 07:51 Ordered CBC Stat Lab 10/16/24 08:18 Completed CMP [Comprehensive Metabolic Panel] Stat Lab 10/16/24 08:18 Completed Meclizine HCl [Antivert] Med 10/16/24 08:04 Discontinued 50 mg PO X1 ONE Vital Signs Vital signs: Vital Signs Temperature 98.7 F 10/16/24 07:58 Pulse Rate 91 10/16/24 07:58 Respiratory Rate 20 10/16/24 07:58 Blood Pressure 122/81 10/16/24 07:58 Pulse Oximetry (%) 96 10/16/24 07:58 Oxygen Delivery Method Room Air 10/16/24 07:58 Discharge Plan Plan Patient Disposition: HOME (Self Care) Patient condition on transfer: Stable Prescriptions/Referrals Prescriptions/Med Rec: No Action omeprazole 40 mg capsule,delayed release(DR/EC) 40 mg PO BID Patient Comments: TOME 1 CAPSULA POR LA BOCA DOS VECES AL EMI PARA EL [place]OM[place]O mesalamine 1,000 mg suppository 1,000 mg [place] HS Patient Comments: INSERT 1 SUPPOSITORY RECTALLY ONCE A DAY AT BEDTIME tramadol 50 mg tablet 50 mg PO Q8H PRN (Reason: pain) Qty: 20 0RF Rx Instructions: Take every 8 hours as needed for moderate to severe pain duloxetine [Cymbalta] 30 mg capsule,delayed release(DR/EC) 30 mg PO BID Qty: 60 0RF Zenpep 40,000-126,000- 168,000 unit capsule,delayed release(DR/EC) 1 cap PO TID Rx Instructions: administer with meals and/or snacks gabapentin 100 mg capsule 200 mg PO HS Patient Comments: TOME 2 CAPSULAS POR LA BOCA EN LA NOCHE PARA DOLOR DE ESPALDA losartan-hydrochlorothiazide 100-25 mg tablet 1 tab PO DAILY Patient Comments: TOME 1 TABLETA POR LA BOCA SHY VES AL EMI EN LA MANANA buprenorphine-naloxone [Suboxone] 12-3 mg film 1 film buccal BID Referrals: Sandy Woods FNP [Primary Care Provider] - In 1 week Problem List Clinical Impression: Vertigo, Weakness, Anxiety Patient/Caregiver Discharge Instructions Education Materials: ED Anxiety Reaction, ED Dizziness, Uncertain Cause Additional Instructions: Follow-up with your primary care doctor for reevaluation. Print Language: [place] Stand Alone Forms: Amalia Award Info., Work/School Release, Patient Portal Info Letter PA/CLUB ATTENDANT Supervising Physician PA/ALLISON Supervising Physician: Partha Nur ENP [facility] Clinical Information Provided by patient Medical Records Reviewed [facility] Meds/Rx Considered, not Ordered None Labs/Rad/Tests considered, not Ordered None Chronic Illness/Social Conditions Add or document further as needed: Anxiety EKG EKG not done Lab Interpretation Lab(s) interpretation(s): CBC shows no acute leukocytosis anemia thrombocytopenia CMP shows no acute electrolyte imbalances renal impairment transaminitis or T. bili elevation. Imaging Imaging interpretation: none Provider imaging interpretation(s): Patient continues to complain of a myriad of things, including chronic lower abdominal pain generalized weakness having temple placed on him and problems with his son. At the time of the reassessment at 9:34 AM, the patient is awake alert oriented with stable vital signs and his dizziness has improved we will discharge him home. Medication Administration(s) Medication Administration History Discontinued Medications Meclizine HCl (Meclizine Hcl 25 Mg Tablet) 50 mg PO X1 ONE Stop: 10/16/24 08:05 Last Admin: 10/16/24 08:14 Dose: 50 mg Documented By: WES Dispositon Disposition: Discharge Home
[2024-10-16] MEDS: MECLIZINE HCL 25 MG TABLET 50 MG PO (08:14)
--- NOTE | 2024-10-16 08:24 | PC.NURSE ---
EKG was not done per provider Jurgan cancelled.
[2024-10-16 08:37] LABS: Basophils # (Auto) 0.1 Thou/mm3 (0.0-0.2); Basophils % (Auto) 1 % (0-2.5); Eosinophils # (Auto) 0.3 Thou/mm3 (0.0-0.5); Eosinophils % (Auto) 4 % (0-10); Hematocrit 39.4 % (41.0-53.0); Hemoglobin 13.2 g/dL (13.5-16.0); Immature Granulocytes Auto 0.04 Thou/mm3 (0.00-0.00); Lymphocytes # (Auto) 1.7 Thou/mm3 (1.0-4.8); Lymphocytes % (Auto) 24 % (10-50); Mean Corpuscular HGB Conc 33.5 g/dl (31.0-37.0); Mean Corpuscular Hemoglobin 28.6 pg (25.0-35.0); Mean Corpuscular Volume 86 fL (80-100); Monocytes # (Auto) 0.4 Thou/mm3 (0.0-0.8); Monocytes % (Auto) 5 % (0-12); Neutrophils # (Auto) 4.6 Thou/mm3 (1.8-7.7); Neutrophils % (Auto) 65 % (37-80); Nucleated Red Blood Cell # 0.00 Thou/mm3 (0.00-0.00); Nucleated Red Blood Cell % 0 /100 WBC (0); Platelet Count 330 Thou/mm3 (140-440); RDW Standard Deviation 39.2 fL (35.1-43.9); Red Blood Count 4.61 Miln/mm3 (4.50-5.90); White Blood Count 7.0 Thou/mm3 (3.8-10.6)
[2024-10-16 08:58] LABS: Alanine Aminotransferase 33 U/L (10-49); Albumin, Serum 4.4 gm/dL (3.4-4.8); Albumin/Globulin Ratio 1.9 (1.2-2.2); Alkaline Phosphatase 93 U/L (46-116); Anion Gap 7 (7-16); Aspartate Amino Transferase 25 U/L (0-34); BUN/Creatinine Ratio 13 Ratio (12-20); Bilirubin,Total 0.4 mg/dL (0.3-1.2); Blood Urea Nitrogen 10 mg/dL (9-23); Calcium 9.7 mg/dL (8.3-10.6); Calcium (Corrected) 9.7 mg/dL (8.5-10.1); Carbon Dioxide 32.2 mMol/L (20.0-31.0); Chloride 103 mMol/L (98-107); Creatinine (Component) 0.8 mg/dL (0.6-1.3); Estimated Creatinine Clearance 98.2 mL/min (>60); Globulin 2.3 gm/dL (2.3-3.5); Glucose 150 mg/dL (74-106); Osmolality,Calculated 285 (275-295); Potassium 4.1 mMol/L (3.4-5.1); Sodium 142 mMol/L (136-145); Total Protein 6.7 gm/dL (5.7-8.2); eGFR > 60 See Note
[2024-10-16 09:54] VITALS: BP 116/68; PULSE 72; RESP 17; TEMP 36.6; O2SAT 99
== END 2024-10-16 09:55 | disposition home or self-care (01) ==
PROVIDERS: Registered Nurse General Practice; Emergency Provider Emergency Medicine; PCP Registered Nurse Community Health
DX: F41.9 Anxiety disorder, unspecified (principal); R42 Dizziness and giddiness; R53.1 Weakness
CPT/HCPCS: 36415; 80053; 85025; 93005; 99282; A9270

== ENCOUNTER 2024-12-20 17:19 | Emergency (ER) | payer MEDICARE, MEDICAID, SELFPAY ==
[2024-12-20 18:12] VITALS: BP 147/78; PULSE 87; RESP 19; TEMP 36.7; O2SAT 95
--- NOTE | 2024-12-20 18:52 | PD.EDRME ---
Rapid Medical Screening Exam RME Arrival date/time: 12/20/24 17:19 This is a case of 64-year-old male with history of hypertension diabetes came in in the emergency room with headache and blurring of vision feeling that her blood sugar is high patient also have confusion at the time of exam persistence of the symptoms this patient decided to start consult here in the emergency room Chief Complaint: Recheck/Abnormal Lab/Rx Time Seen by Provider: 12/20/24 18:30 Vital signs: Vital Signs Temperature 98.1 F 12/20/24 18:12 Pulse Rate 87 12/20/24 18:12 Respiratory Rate 19 12/20/24 18:12 Blood Pressure 147/78 H 12/20/24 18:12 Pulse Oximetry (%) 95 12/20/24 18:12 Oxygen Delivery Method Room Air 12/20/24 18:12
[2024-12-20 19:21] LABS: Base Excess, Venous 4 (-3-3); O2 Saturation, Venous 88 % (96-97); PCO2, Venous 36 mmHg (36-56); PO2, Venous 47 mmHg (15-58); pH, Venous 7.49 (7.33-7.66)
[2024-12-20 19:26] LABS: Basophils # (Auto) 0.0 Thou/mm3 (0.0-0.2); Basophils % (Auto) 1 % (0-2.5); Eosinophils # (Auto) 0.2 Thou/mm3 (0.0-0.5); Eosinophils % (Auto) 2 % (0-10); Hematocrit 40.8 % (41.0-53.0); Hemoglobin 14.2 g/dL (13.5-16.0); Immature Granulocytes Auto 0.03 Thou/mm3 (0.00-0.00); Lymphocytes # (Auto) 1.7 Thou/mm3 (1.0-4.8); Lymphocytes % (Auto) 20 % (10-50); Mean Corpuscular HGB Conc 34.8 g/dl (31.0-37.0); Mean Corpuscular Hemoglobin 28.4 pg (25.0-35.0); Mean Corpuscular Volume 82 fL (80-100); Monocytes # (Auto) 0.5 Thou/mm3 (0.0-0.8); Monocytes % (Auto) 6 % (0-12); Neutrophils # (Auto) 6.2 Thou/mm3 (1.8-7.7); Neutrophils % (Auto) 72 % (37-80); Nucleated Red Blood Cell # 0.00 Thou/mm3 (0.00-0.00); Nucleated Red Blood Cell % 0 /100 WBC (0); Platelet Count 311 Thou/mm3 (140-440); RDW Standard Deviation 38.0 fL (35.1-43.9); Red Blood Count 5.00 Miln/mm3 (4.50-5.90); White Blood Count 8.6 Thou/mm3 (3.8-10.6)
[2024-12-20 19:27] LABS: Beta Hydroxybutyrate 0.2 mmol/L (<0.6)
[2024-12-20 19:50] LABS: Alanine Aminotransferase 31 U/L (10-49); Albumin, Serum 4.5 gm/dL (3.4-4.8); Albumin/Globulin Ratio 2.1 (1.2-2.2); Alkaline Phosphatase 122 U/L (46-116); Anion Gap 9 (7-16); Aspartate Amino Transferase 21 U/L (0-34); BUN/Creatinine Ratio 13 Ratio (12-20); Bilirubin,Total 0.4 mg/dL (0.3-1.2); Blood Urea Nitrogen 10 mg/dL (9-23); Calcium 9.3 mg/dL (8.3-10.6); Calcium (Corrected) 9.3 mg/dL (8.5-10.1); Carbon Dioxide 29.6 mMol/L (20.0-31.0); Chloride 100 mMol/L (98-107); Creatinine (Component) 0.8 mg/dL (0.6-1.3); Globulin 2.1 gm/dL (2.3-3.5); Glucose 151 mg/dL (74-106); Lipase 25 U/L (12-53); Osmolality,Calculated 279 (275-295); Potassium 4.1 mMol/L (3.4-5.1); Sodium 139 mMol/L (136-145); Total Protein 6.6 gm/dL (5.7-8.2); eGFR > 60 See Note
[2024-12-20 19:50] LABS: Collection Type, Urine Clean Catch
[2024-12-20 20:13] LABS: Amorphous Crystals,Urine Present (Absent); Bilirubin,Urine Negative (Negative); Blood,Urine Negative (Negative); Clarity,Urine Clear (Clear/Hazy); Color,Urine Yellow (Lt Yel-Yel); Glucose, Urine 4+ (Negative); Ketones,Urine Trace (Negative); Leukocyte Esterase,Urine Negative (Negative); Nitrite,Urine Negative (Negative); PH,Urine 6.5 (5.0-7.0); Protein,Urine Trace (Neg - Trace); RBC,Urine 1 /hpf (0-3); Squamous Epithelial Cell,Urine < 1 /hpf (0-5); Urobilinogen,Urine Negative mg/dL (0.0-1.0); WBC,Urine < 1 /hpf (0-5)
[2024-12-20 20:16] LABS: Specific Gravity,Urine 1.015 (1.001-1.035)
--- NOTE | 2024-12-20 20:54 | PD.EDRECHK ---
ED Recheck Abnl Lab Rx-RME/HPI General Chief Complaint: Recheck/Abnormal Lab/Rx Stated Complaint: Blood sugar high, vomiting today Time Seen by Provider: 12/20/24 18:30 Arrival date/time: 12/20/24 17:19 Limitations: no limitations RME / HPI RME / HPI narrative: 12/20/24 17:19 This is a case of 64-year-old male with history of hypertension diabetes came in in the emergency room with headache and blurring of vision feeling that her blood sugar is high patient also have confusion at the time of exam persistence of the symptoms this patient decided to start consult here in the emergency room. He reports all this started when he made himself an herbal tea to help with the stomach but it made it worse. Then was having intermittent abdominal pain feeling like he was going to throw up and even headache from the retching. No diarrhea no fever. Does have chronic stomach issues has a colonoscopy and endoscopy pending with PCP Related Data Home Medications ?Medication ?Instructions ?Recorded ?Confirmed mesalamine 1,000 mg rectal 1,000 mg [place] HS 04/24/22 10/13/24 suppository omeprazole 40 mg capsule,delayed 40 mg PO BID 04/24/22 10/13/24 release buprenorphine 12 mg-naloxone 3 mg 1 film buccal BID 09/16/24 10/13/24 sublingual film (Suboxone) gabapentin 100 mg capsule 200 mg PO HS 09/16/24 10/13/24 [id number] 1 cap PO TID 09/16/24 10/13/24 40,000-126,000-168,000 unit capsule, delay rel (Zenpep) losartan 100 1 tab PO DAILY 09/16/24 10/13/24 mg-hydrochlorothiazide 25 mg tablet Previous Rx's ?Medication ?Instructions ?Recorded duloxetine 30 mg capsule,delayed 30 mg PO BID #60 caps 11/17/23 release (Cymbalta) tramadol 50 mg tablet 50 mg PO Q8H PRN pain #20 tabs 10/01/24 ondansetron 4 mg disintegrating 4 mg PO Q8H PRN nausea and 12/20/24 tablet vomiting #10 tabs Allergies Allergy/AdvReac Type Severity Reaction Status Date / Time No Known Allergies Allergy Verified 12/20/24 17:23 Review of Systems Review of Systems Systems Reviewed: All systems reviewed, normal except as documented Constitutional Constitutional: Denies fever(s) Cardiovascular Cardiovascular: Denies dyspnea Respiratory Respiratory: Denies chest congestion, Denies cough and Denies dyspnea Gastrointestinal Gastrointestinal: Reports as per HPI ED Exam General Limitations: Present no limitations General appearance: Present alert and in no apparent distress Head Head exam: Present atraumatic Eye Eye exam: Present normal appearance, PERRL and EOMI ENT ENT exam: Present normal exam, normal oropharynx and mucous membranes moist Neck Neck exam: Present normal inspection, full ROM and trachea midline Chest Chest inspection: Present normal inspection and symmetric chest wall rise Respiratory Respiratory exam: Present normal lung sounds bilaterally Cardiovascular Cardiovascular exam: Present regular rate, normal rhythm and normal heart sounds Abdominal Exam Abdominal exam: Present soft and normal bowel sounds Extremities Exam Extremities exam: Present normal inspection and full ROM Back Exam Back exam: Present normal inspection and full ROM Neurological Exam Neurological exam: Present alert, oriented X3 and CN II-XII intact Psychiatric Psychiatric exam: Present normal affect and normal mood Skin Skin exam: Present warm, dry, intact and normal color Course Quality Measures none Orders Category Date Time Status Beta Hydroxybutyrate Stat Lab 12/20/24 19:09 Completed CBC Stat Lab 12/20/24 19:09 Completed Comprehensive Metabolic Panel Stat Lab 12/20/24 19:09 Completed Lipase Stat Lab 12/20/24 19:09 Completed Urinalysis Stat Lab 12/20/24 19:42 Completed Venous Blood Gas Stat Lab 12/20/24 19:09 Completed Ibuprofen Tab [Motrin Tab] Med 12/20/24 20:54 Discontinued 800 mg PO X1 ONE Ondansetron Odt [Zofran Odt] Med 12/20/24 20:54 Discontinued 4 mg PO X1 ONE Vital Signs Vital signs: Vital Signs Temperature 98.1 F 12/20/24 18:12 Pulse Rate 87 12/20/24 18:12 Respiratory Rate 19 12/20/24 18:12 Blood Pressure 147/78 H 12/20/24 18:12 Pulse Oximetry (%) 95 12/20/24 18:12 Oxygen Delivery Method Room Air 12/20/24 18:12 Recheck / Abnormal Lab / Rx MDM Narrative MDM Narrative:: Workup initiated due to history of diabetes. Patient found not to be in DKA likely had reaction to herbal supplement tea. Labs are reassuring for stable discharge for home. Advise follow-up with PCP return to ER symptoms worsen Patient data External records reviewed:: [facility] Clinical information provided by:: patient and family Social determinants that could affect healthcare access:: other (specify) (encounter performed in [place] patient's [place] language) Patient has the following chronic illnesses:: Diet How is presenting disease/condition affected by chronic disease/condition?: exacerbated by Evaluation data The following diagnostics were reviewed and interpreted by me:: lab results Lab and/or radiology exams considered but not ordered:: Discharge CT scan of abdomen was unlikely to change the course of treatment today Interpretation Summary: CBC, CMP, lipase, UA, all within normal limits other than mildly elevated glucose Negative ketones patient not in DKA today Medications / Prescriptions Medications or Prescriptions considered but not ordered:: Consider dicyclomine patient opted against Medication administrations:: Medication Administration History Discontinued Medications Ibuprofen (Ibuprofen Tab 400 Mg Tablet) 800 mg PO X1 ONE Stop: 12/20/24 20:55 Last Admin: 12/20/24 21:02 Dose: 800 mg Documented By: Ondansetron HCl (Ondansetron Odt 4 Mg Tabrap) 4 mg PO X1 ONE; Protocol Stop: 12/20/24 20:55 Last Admin: 12/20/24 21:03 Dose: 4 mg Documented By: See above Consultations Consultation(s) initiated? (list below): No Diagnosis Recheck Differential Diagnosis: encounter for wound recheck, encounter for recheck of burn and other (Elevated blood sugar, DKA, show herbal supplement abuse) Most likely diagnosis given after review of the tests above:: Diabetes Hyperglycemia Herbal supplement abuse Nausea Chronic indigestion Admission Indicated Admission indicated?: not indicated Admission Request Was there a request for admission?: No Disposition Plan Disposition Plan: Discharge Discharge Attestation Discharge Attestation: The patient and all family members were given an opportunity to ask questions and understood the discharge instructions. Discharge instructions specifically effects, indications for sooner follow up or return to the emergency department, and the expected course of current diagnosis. Patient condition: Stable Discharge Plan Plan Patient Disposition: HOME (Self Care) Discharge Disposition comment: Follow-up with PCP in 2 to 3 days Prescriptions/Referrals Prescriptions/Med Rec: New ondansetron 4 mg tablet,disintegrating 4 mg PO Q8H PRN (Reason: nausea and vomiting) Qty: 10 0RF No Action omeprazole 40 mg capsule,delayed release(DR/EC) 40 mg PO BID Patient Comments: TOME 1 CAPSULA POR LA BOCA DOS VECES AL EMI PARA EL [place]OM[place] mesalamine 1,000 mg suppository 1,000 mg [place] HS Patient Comments: INSERT 1 SUPPOSITORY RECTALLY ONCE A DAY AT BEDTIME tramadol 50 mg tablet 50 mg PO Q8H PRN (Reason: pain) Qty: 20 0RF Rx Instructions: Take every 8 hours as needed for moderate to severe pain duloxetine [Cymbalta] 30 mg capsule,delayed release(DR/EC) 30 mg PO BID Qty: 60 0RF Zenpep 40,000-126,000- 168,000 unit capsule,delayed release(DR/EC) 1 cap PO TID Rx Instructions: administer with meals and/or snacks gabapentin 100 mg capsule 200 mg PO HS Patient Comments: TOME 2 CAPSULAS POR LA BOCA EN LA NOCHE PARA DOLOR DE ESPALDA losartan-hydrochlorothiazide 100-25 mg tablet 1 tab PO DAILY Patient Comments: TOME 1 TABLETA POR LA BOCA SHY VES AL EMI EN LA MANANA buprenorphine-naloxone [Suboxone] 12-3 mg film 1 film buccal BID Referrals: Sandy Woods FNP [Primary Care Provider] - In 1 week Problem List Clinical Impression: Diabetes mellitus, Headache, Abuse of herbal medicine, History of indigestion Patient/Caregiver Discharge Instructions Education Materials: Managing Type 2 Diabetes Print Language: Danish Stand Alone Forms: Amalia Award Info., Patient Portal Info Letter PA/YOUTH DIRECTOR Supervising Physician PA/YOUTH DIRECTOR Supervising Physician: Dr. Tamayo
[2024-12-20] MEDS: IBUPROFEN TAB 400 MG TABLET 800 MG PO (21:02)
[2024-12-20] MEDS: ONDANSETRON ODT 4 MG TABRAP PO (21:03)
== END 2024-12-20 21:09 | disposition home or self-care (01) ==
PROVIDERS: Nurse Practitioner Family; Emergency Provider Emergency Medicine; PCP Registered Nurse Community Health
DX: E11.65 Type 2 diabetes mellitus with hyperglycemia (principal); I10 Essential (primary) hypertension
CPT/HCPCS: 36415; 80053; 81001; 82010; 82803; 83690; 85025; 99283; Q0162; A9270

== ENCOUNTER → 2025-01-15 | Outpatient (CLI) | payer OTHER, SELFPAY ==
--- NOTE | 2025-01-15 | XR_ITS ---
Examination: Abdomen AP single view Technique: AP portable supine abdomen, single view (2 images total) Exam date and time: 01/15/2025 at 8:17 a.m. INDICATION: Constipation for [address] abdomen and pelvis 10/06/2022 FINDINGS: A very large amount of fecal matter is present diffusely throughout the redundant colon. No small bowel dilatation suggestive of obstruction. No free air. Small bowel pelvic phleboliths with otherwise no calculi in the projection of the gallbladder or urinary tract. Multilevel spondylosis with mild dextroscoliosis. Visualized lower lung carlin are clear. IMPRESSION: Radiographic findings consistent with clinical constipation, with large amount of fecal burden throughout the redundant colon.
== END | disposition home or self-care (01) ==
PROVIDERS: PCP Specialist; Referring Provider Specialist; Visit Provider Specialist
DX: K59.00 Constipation, unspecified (principal)
CPT/HCPCS: 74018